=== PATIENT | female | born 1940 | race Caucasian/White ===

== ENCOUNTER 2016-08-29 10:22 | Inpatient (IN) | payer MEDICARE, OTHER ==
[2016-08-29 10:39] LABS: Hematocrit 49 % (35-47); Hemoglobin 16.1 g/dl (12.0-16.0); Mean Corpuscular HGB Conc 33 g/dl (31-36); Mean Corpuscular Hemoglobin 29 pg (27-31); Mean Corpuscular Volume 89 fL (80-97); Mean Platelet Volume 9 um3 (7.4-10.4); Red Blood Count 5.55 10^6/ul (4.0-5.4); Red Cell Distribution Width 15 % (10.5-15); White Blood Count 8.2 10^3/ul (3.5-10.8)
[2016-08-29] MEDS: Labetalol IV* 5 MG/ML 20 ML VIAL IV PUSH ONE ×2 (10:48→11:24)
--- NOTE | 2016-08-29 10:49 | RAD ---
Indication: Neurologic changes, coronal miranda. CT of the brain was performed without IV contrast. No prior study is available for comparison. Ventricular structures are midline. No midline shift is noted. There is central and cortical atrophy noted. There is no evidence of intracranial mass or hemorrhage. Periventricular lucency consistent with chronic ischemic White matter change is noted. Mastoid air cells and paranasal sinuses are otherwise unremarkable. IMPRESSION: No intracranial mass or hemorrhage is noted. Chronic ischemic White matter change. Findings discussed with Dr. French at 10:45 AM.
[2016-08-29 10:54] LABS: Albumin 4.2 g/dL (3.2-5.2); Calcium 9.8 mg/dL (8.6-10.3); EGFR African American 108.8 (>60); EGFR Non-African American 84.6 (>60); Globulin 3.4 g/dL (2-4); HDL Cholesterol 50.1 mg/dL; Potassium 3.3 mmol/L (3.5-5.0); Total Bilirubin 0.8 mg/dL (0.2-1.0); Total Protein 7.6 g/dL (6.4-8.9)
[2016-08-29 10:57] LABS: Troponin I 0.01 ng/mL (<0.04)
--- NOTE | 2016-08-29 11:24 | RAD ---
Indication: Syncope. Single frontal view of the chest performed at 1050 hours was reviewed. No prior study is available for review. No mediastinal shift is noted. This cardiomegaly noted. Lung hurtado appear clear with no pleural fluid, pneumonia or pneumothorax. IMPRESSION: NO ACTIVE CARDIOPULMONARY DISEASE IS NOTED.
[2016-08-29] MEDS ORDERED: ALTEPLASE IV ONE ×2 (11:32)
[2016-08-29] MEDS ORDERED: Alteplase* 100 MG VIAL ONE (11:32)
[2016-08-29] MEDS ORDERED: KCL 10 MEQ/50 ML IVPREMIX* 10 MEQ/50 ML BAG IV ONE (11:59)
[2016-08-29 12:22] LABS: Magnesium 1.6 mg/dL (1.9-2.7)
[2016-08-29] MEDS ORDERED: Iohexol 350* (CONTRAST) 500 ML MDV IV ONE (12:29)
[2016-08-29] MEDS ORDERED: Magnesium Sulfate 1 GM IV* 1 GM/100 ML BAG IV ONE (12:50)
--- NOTE | 2016-08-29 13:14 | RAD ---
Indication: Stroke. Contrast: Administered 80.1 ml of OMNIPAQUE 350 mg/ml. CTA of the neck and head was performed after IV contrast administration. Coronal and sagittal reconstructed images were obtained. The origins of the great vessels from the aortic arch are unremarkable with minimal atherosclerosis of the origin of the left common carotid artery. The internal carotid arteries are patent bilaterally. The right common carotid artery bulb demonstrates calcification. No evidence of aortic dissection or stenosis is identified otherwise. The left carotid bulb demonstrates calcific plaque. Tortuous left internal carotid artery is noted. The vertebral artery demonstrates demonstrates no evidence of significant stenosis. The intracranial carotid arteries demonstrate calcific plaque in the intracavernous portions. Normal bifurcations are noted with no aneurysmal dilatation. Middle cerebral and anterior cerebral arteries are grossly unremarkable. Basilar artery and posterior cerebral arteries are unremarkable. IMPRESSION: Calcific plaque is noted in both internal carotid arteries. Internal carotid arteries demonstrates no evidence of aortic dissection. CTA of the head demonstrates no branch occlusion. No aneurysmal dilatation is noted.
[2016-08-29] MEDS ORDERED: Magnesium Sulfate IV* 0.5 GM/ML 2 ML VIAL (1 GM) ONE (13:27)
[2016-08-29] MEDS ORDERED: Labetalol IV* 5 MG/ML 20 ML VIAL IV PUSH ONE (13:32)
[2016-08-29] MEDS ORDERED: Acetaminophen TAB* 325 MG PO PRN (14:20)
[2016-08-29] MEDS ORDERED: Ondansetron INJ* 2 MG/ML VIAL IV PRN (14:20)
[2016-08-29] MEDS ORDERED: Potassium Chloride LIQUID* 20 MEQ PACKET PO ONE (14:29)
[2016-08-29] MEDS: Atorvastatin* 80 MG TAB PO SCH (17:47)
--- NOTE | 2016-08-29 18:58 | ED ---
Sandie Batista Auryana, scribed for Jey French MD on 08/29/16 at 1034 . Neurological HPI - HPI Summary HPI Summary: 75 year old female presents to the ED with possible stroke. Patient is unsure if symptoms started at 08:00 AM or 09:00 AM but family reports that at about 08: 30, the patient called c/o symptoms - nausea, vomiting x1, diaphoresis, and fixed Gaze to the right. Per EMS report- patient had new onset atrial fibrillation en route. Code nadia called at 10:31. PMHx is significant for HTN and kidney cancer - in remission, no chemotherapy. - History of Current Complaint Chief Complaint: EDNeurologicalDeficit Stated Complaint: VOMITING/SWEATING Time Seen by Provider: 08/29/16 10:29 Last Known Well Date: 08/29/2016 08:00 Hx Obtained From: Patient Hx Last Menstrual Period: N/A Onset/Duration: Sudden Onset, Started hours ago - [employer]ATION[employer], Still Present Timing: Constant Onset Severity: Mild Current Severity: Mild Neurological Deficit Location: Generalized - fized gaze to the right Character: Visual Changes - fized gaze to the right Associated Signs and Symptoms: Positive: Nausea/Vomiting, Diaphoresis - Allergy/Home Medications Allergies/Adverse Reactions: Allergies Allergy/AdvReac Type Severity Reaction Status Date / Time No Known Allergies Allergy Verified 08/29/16 10:47 Home Medications: Home Medications Valsartan TAB* 08/29/16 [History] PMH/Surg Hx/FS Hx/Imm Hx Cardiovascular History: Reports: Hx Hypertension - Cancer History Cancer Type, Location and Year: [facility] - no chemotherapy tx - Family History Known Family History: Positive: Cardiac Disease - [place] IN HIUSBAND BUT OTHERWISE NO HISTORY, Hypertension, Other - CERVICAL CA, ETOH ABUSE Negative: Diabetes - Social History Lives: With Family Alcohol Use: None Hx Substance Use: No Substance Use Type: Reports: None Hx Tobacco Use: No Smoking Status (MU): Never Smoked Tobacco Review of Systems Positive: Skin Diaphoresis. Negative: Fever Eyes: Negative Positive: Other - fixed gaze to the right Respiratory: Negative Positive: Nausea Genitourinary: Negative Positive: no symptoms reported Musculoskeletal: Negative Skin: Negative Neurological: Negative Psychological: Normal All Other Systems Reviewed And Are Negative: Yes Physical Exam - Summary Physical Exam Summary: VITAL SIGNS: Reviewed. GENERAL: ~Patient is a obese female who is lying comfortable in the stretcher. ~ Patient is not in any acute respiratory distress. HEAD AND FACE: No signs of trauma. ~No ecchymosis, hematomas or skull depressions. No sinus tenderness. EYES: PERRLA, EOMI x 2, No injected conjunctiva, no nystagmus. No photophobia. EARS: Hearing grossly intact. Ear canals and tympanic membranes are within normal limits. MOUTH: Oropharynx within normal limits. NECK: Supple, trachea is midline, no adenopathy, no JVD, no carotid bruit, no c- spine tenderness, neck with full ROM. No meningeal signs, no Kernig's or brudzinskis signs. CHEST: Symmetric, no tenderness at palpation LUNGS: Clear to auscultation bilaterally. No wheezing or crackles. CVS: Regular rate and rhythm, S1 and S2 present, no murmurs or gallops appreciated. ABDOMEN: Soft, non-tender. No signs of distention. No rebound no guarding, and no masses palpated. Bowel sounds are normal. EXTREMITIES: FROM in all major joints, no cyanosis or clubbing. BILATERAL LOWER EXT EDEMA. NEURO: Alert and oriented x 3. Speech is normal and follows commands. SEE NIH SCALE - 2. SKIN: Dry and warm Triage Information Reviewed: Yes Vital Signs On Initial Exam: Initial Vitals Temp Pulse Resp BP Pulse Ox 95.9 F 89 18 194/128 94 08/29/16 10:28 08/29/16 10:28 08/29/16 10:28 08/29/16 10:28 08/29/16 10:28 Vital Signs Reviewed: Yes Diagnostics - Vital Signs Vital Signs Temp Pulse Resp BP Pulse Ox 08/29/16 13:30 65 13 155/96 96 08/29/16 13:06 68 14 171/106 94 08/29/16 13:05 66 14 182/104 95 08/29/16 13:00 67 14 95 08/29/16 12:59 64 16 171/106 94 08/29/16 12:00 63 15 95 08/29/16 11:55 61 15 152/95 96 08/29/16 11:50 61 15 165/101 97 08/29/16 11:49 59 16 95 08/29/16 11:48 60 15 155/100 96 08/29/16 11:30 65 18 153/86 94 08/29/16 11:27 68 18 156/95 96 08/29/16 11:20 67 14 177/105 96 08/29/16 11:00 58 15 161/107 96 08/29/16 10:56 171/89 08/29/16 10:51 171/89 08/29/16 10:50 69 16 96 08/29/16 10:49 192/121 08/29/16 10:43 81 20 92 08/29/16 10:40 192/121 08/29/16 10:28 95.9 F 89 18 194/128 94 - Laboratory Lab Results: Lab Results 08/29/16 08/29/16 08/29/16 Range/Units 10:30 10:30 10:30 WBC 8.2 (3.5-10.8) 10^3/ul RBC 5.55 H (4.0-5.4) 10^6/ul Hgb 16.1 H (12.0-16.0) g/dl Hct 49 H (35-47) % MCV 89 (80-97) fL MCH 29 (27-31) pg MCHC 33 (31-36) g/dl RDW 15 (10.5-15) % Plt Count 242 (150-450) 10^3/ul MPV 9 (7.4-10.4) um3 Neut % (Auto) 64.7 (38-83) % Lymph % (Auto) 25.9 (25-47) % Dickens % (Auto) 6.3 (1-9) % Eos % (Auto) 2.4 (0-6) % Baso % (Auto) 0.7 (0-2) % Absolute Neuts (auto) 5.3 (1.5-7.7) 10^3/ul Absolute Lymphs (auto) 2.1 (1.0-4.8) 10^3/ul Absolute Monos (auto) 0.5 (0-0.8) 10^3/ul Absolute Eos (auto) 0.2 (0-0.6) 10^3/ul Absolute Basos (auto) 0.1 (0-0.2) 10^3/ul Absolute Nucleated RBC 0 10^3/ul Nucleated RBC % 0 INR (Anticoag Therapy) 0.94 (0.89-1.11) APTT 24.9 L (26.0-36.3) seconds Sodium 137 (133-145) mmol/L Potassium 3.3 L (3.5-5.0) mmol/L Chloride 101 (101-111) mmol/L Carbon Dioxide 25 (22-32) mmol/L Anion Gap 11 (2-11) mmol/L BUN 17 (6-24) mg/dL Creatinine 0.68 (0.51-0.95) mg/dL Est GFR ( Amer) 108.8 (>60) Est GFR (Non-Af Amer) 84.6 (>60) BUN/Creatinine Ratio 25.0 H (8-20) Glucose 203 H (70-100) mg/dL Lactic Acid (0.5-2.0) mmol/L Calcium 9.8 (8.6-10.3) mg/dL Magnesium 1.6 L (1.9-2.7) mg/dL Total Bilirubin 0.80 (0.2-1.0) mg/dL AST 16 (13-39) U/L ALT 12 (7-52) U/L Alkaline Phosphatase 62 (34-104) U/L Troponin I 0.01 (<0.04) ng/mL Total Protein 7.6 (6.4-8.9) g/dL Albumin 4.2 (3.2-5.2) g/dL Globulin 3.4 (2-4) g/dL Albumin/Globulin Ratio 1.2 (1-3) Triglycerides 248 mg/dL Cholesterol 257 mg/dL LDL Cholesterol 157 mg/dL HDL Cholesterol 50.1 mg/dL Blood Type Antibody Screen 08/29/16 08/29/16 Range/Units 10:30 10:30 WBC (3.5-10.8) 10^3/ul RBC (4.0-5.4) 10^6/ul Hgb (12.0-16.0) g/dl Hct (35-47) % MCV (80-97) fL MCH (27-31) pg MCHC (31-36) g/dl RDW (10.5-15) % Plt Count (150-450) 10^3/ul MPV (7.4-10.4) um3 Neut % (Auto) (38-83) % Lymph % (Auto) (25-47) % Dickens % (Auto) (1-9) % Eos % (Auto) (0-6) % Baso % (Auto) (0-2) % Absolute Neuts (auto) (1.5-7.7) 10^3/ul Absolute Lymphs (auto) (1.0-4.8) 10^3/ul Absolute Monos (auto) (0-0.8) 10^3/ul Absolute Eos (auto) (0-0.6) 10^3/ul Absolute Basos (auto) (0-0.2) 10^3/ul Absolute Nucleated RBC 10^3/ul Nucleated RBC % INR (Anticoag Therapy) (0.89-1.11) APTT (26.0-36.3) seconds Sodium (133-145) mmol/L Potassium (3.5-5.0) mmol/L Chloride (101-111) mmol/L Carbon Dioxide (22-32) mmol/L Anion Gap (2-11) mmol/L BUN (6-24) mg/dL Creatinine (0.51-0.95) mg/dL Est GFR ( Amer) (>60) Est GFR (Non-Af Amer) (>60) BUN/Creatinine Ratio (8-20) Glucose (70-100) mg/dL Lactic Acid 2.5 H* (0.5-2.0) mmol/L Calcium (8.6-10.3) mg/dL Magnesium (1.9-2.7) mg/dL Total Bilirubin (0.2-1.0) mg/dL AST (13-39) U/L ALT (7-52) U/L Alkaline Phosphatase (34-104) U/L Troponin I (<0.04) ng/mL Total Protein (6.4-8.9) g/dL Albumin (3.2-5.2) g/dL Globulin (2-4) g/dL Albumin/Globulin Ratio (1-3) Triglycerides mg/dL Cholesterol mg/dL LDL Cholesterol mg/dL HDL Cholesterol mg/dL Blood Type O Positive Antibody Screen Negative Result Diagrams: 08/29/16 10:30 08/29/16 10:30 Lab Statement: Any lab studies that have been ordered have been reviewed, and results considered in the medical decision making process. - Radiology CXR Xray Interpretation: No Acute Changes Radiology Interpretation Completed By: Radiologist - CT BRAIN CT Interpretation: No Acute Changes - IMPRESSION: No intracranial mass or hemorrhage is noted. Chronic ischemic White matter change. Findings discussed with Dr. French at 10:[address] Interpretation Completed By: Radiologist HEAD CTA CT Interpretation: Positive (See Comments) - IMPRESSION: Calcific plaque is noted in both internal carotid arteries. Internal carotid arteries demonstrates no evidence of aortic dissection. CTA of the head demonstrates no branch occlusion. No aneurysmal dilatation is noted. CT Interpretation Completed By: Radiologist - EKG 10:41 EKG Interpretation: SINUS RHYTHM @ 82 BPM, P WAVES PRESENT NIH Scale - NIH Scale Level of Consciousness: Alert/Keenly Responsive Ask Patient the Month and His/Her Age: Both Correct Ask Pt to Open/Close Eyes and Equal Opportunity Specialist/Release Non-Paretic Hand: Both Correctly Best Gaze (Only Horizontal Eye Movement): Forced Deviation - gaze to the right Visual Field Testing: No Visual Loss Facial Paresis-Pt to Smile & Close Eyes or Grimace Symmetry: Normal/Symmetrical Motor Function - Right Arm: No Drift-Holds 10 Seconds Motor Function - Left Arm: No Drift-Holds 10 Seconds Motor Function - Right Leg: No Drift-Holds 10 Seconds Motor Function - Left Leg: No Drift-Holds 10 Seconds Limb Ataxia-Must be out of Proportion to Weakness Present: Absent Sensory (Use Pinprick to Test Arms/Legs/Trunk/Face): Normal Best Language (Describe Picture, Name Items): No Aphasia Dysarthria (Read Several Words): Normal Extinction and Inattention: No Abnormality Total Score: 2 Course/Dx - Course Assessment/Plan: 75 year old female presents to the ED with possible stroke. Patient is unsure if symptoms started at 08:00 AM or 09:00 AM but family reports that at about 08:30, the patient called c/o symptoms - nausea, vomiting x1, diaphoresis, and fixed Gaze to the right. Per EMS report- patient had new onset atrial fibrillation en route. Ta zuniga called at 10:31. PMHx is significant for HTN and kidney cancer - in remission, no chemotherapy. In the ED course an IV access was obtained. Patient was placed in a furniture polisher. Neuro exam was done. Ta miranda was called. Place call to [place] neurologist. BP was noted to be elevated. She was given Labetalol IV. Labs within normal limits except for increase HB and HCT. Potassium and magnesium level decreased. She was given KCL and Magnesium IV. Troponin #1: 0.01. EKG shows a NSR at [address] BPM w/[address] elevations. CXR impression: No acute pathology. Head CT shows no mass or hemorrhage . I discussed the case withDr. Nelson ([place] Neurologist ). He consulted via iPad with patient. After his assessment he decided to give Alteplase to the patient. She had no contraindications for Alteplase. Patient and family agreed. They understood benefits and risk of medications. Dr. Nelson also ordered head and neck CTA. CTA head and neck IMPRESSION: Calcific plaque is noted in both internal carotid arteries. Internal carotid arteries demonstrates no evidence of aortic dissection. CTA of the head demonstrates no branch occlusion. No aneurysmal dilatation is noted. I discussed the CTA result with Dr. Nelson (13:27) who recommends to admit patient to the ICU at [facility]. I discussed the case with Dr. Vargas (13:31) and recommends for hospitalist to admit patient to the ICU. I spoke with Dr. Perez and he accepted patient for admission. Patient is getting better and she can move eyes to the left. She hemodynamically stable and A+O x 3. - Differential Dx Differential Diagnoses Neuro: Positive: Cerebrovascular Accident, Seizure Disorder, Transient Ischemic Attack - Diagnoses Provider Diagnoses: Ischemic CVA, Hypertensive urgency During the Visit The Following Alert/Code Occurred: Code Zuniga - 10:31 - Physician Notifications Discussed Care Of Patient With: Denise Juarez Time Discussed With Above Provider: 11:00 - Critical Care Time Critical Care Time: 75-104 min Discharge - Discharge Plan Condition: Improved Disposition: ADMITTED TO [facility] documentation as recorded by the Sandie heredia Auryana accurately reflects the service I personally performed and the decisions made by me, Jey French MD.
--- NOTE | 2016-08-29 19:15 | HP ---
CC: Dr. Rodriguez; Dr. Juarez * HISTORY AND PHYSICAL: DATE OF ADMISSION: 08/29/16 PRIMARY CARE PROVIDER: Dr. Rodriguez. CONSULTING NEUROLOGIST: Dr. Juarez. ADMITTING PROVIDER: Fernando Galloway MD * (DICTATED BY LISA POLK NP) CHIEF COMPLAINT: 1. Left visual loss. 2. Falling to the right. 3. Not feeling well. HISTORY OF PRESENT ILLNESS: Mrs. Centeno is a 75-year-old female patient, the only history that she carries according to her is hypertension. She comes in today, she says that she was feeling well initially when she woke up around 7.30 and around 8'o clock, it was noted by herself that she was having trouble seeing on the left side, coming on suddenly, she noticed that she could not look over to the left. She felt clammy, she felt diaphoretic, nauseated, felt very dizzy. She stated that whenever she tried to walk, she noted that she was falling to the right. Her son, who used to work as a bus trolley and taxi instructor was concerned that this may be a stroke and he called 911, she was brought in. The son states that he did not notice any weakness to one side or any facial drooping or slurring of the words. The patient denied any of these complaints and denied having any trouble with word finding. She was last seen well around 8 'o clock, she was felt to be appropriate for TPA. Ta Porfirio was called. There was consult placed with Dr. Mancuso from [facility] and initially, she was consulted with Dr. Juarez. TPA was ultimately given and after further workup, it was felt that she was appropriate to be admitted as her CTA was negative. The patient says that she did not have any chest pain. No palpitations, no shortness of breath. There has been no abdominal pain. There was an episode of nausea, but no vomiting. She did admit to being diaphoretic. There has been no recent change in medications. No fevers or chills. Again, because of the stroke like symptoms, TPA was given and we are asked to evaluate for admission. PAST MEDICAL HISTORY: Significant for: 1. Hypertension. 2. She had kidney cancer. PAST SURGICAL HISTORY: She has had a kidney tumor removed. HOME MEDICATIONS: Valsartan 1 tablet p.o. daily, we are trying to get the actual milligrams. Family states they will bring in the medication bottle. ALLERGIES TO MEDICATIONS: Include no known drug allergies FAMILY HISTORY: Mother's history is reviewed, noncontributory. Father's history is unknown. SOCIAL HISTORY: She does not smoke. She does not drink alcohol. Surrogate decision maker is her son Zachary. REVIEW OF SYSTEMS: There is no documented fever. She denied having any significant weight change. There was no double vision. She did admit to having the visual loss on the left side. She denies having any ear discharge, no rhinorrhea, no sore throat, no thyroid enlargement. Denied any chest pain. No orthopnea or nocturnal dyspnea. There is no abdominal pain, no nausea, no vomiting, no dysuria, no frequency. There was no seizure, no loss of consciousness. No pruritus, no skin ulcerations. Review of 14 systems completed, all others negative. PHYSICAL EXAMINATION VITAL SIGNS: Reveals blood pressure 105/96, her pulse is 65, respirations 13, O2 sat 96%, temperature 95.9. GENERAL: At this time, Mrs. Centeno is a 75-year-old female patient. She is sitting in the ER stretcher. She does not appear to be in any acute distress. HEENT: Head is atraumatic and normocephalic. Eyes, EOMs are intact. Currently , she is now able to look to the left side and to the right, apparently earlier she could not. Her pupils are equal and reactive to light. Throat, oral mucosa appears to be moist. No oropharyngeal erythema. NECK: Supple. HEART: Sounds S1, S2. Regular rate and rhythm. No murmurs, rubs, or gallops. LUNGS: Clear to auscultation. No wheezes, rales, or rhonchi. ABDOMEN: Soft. It was flat. Nontender. Bowel sounds were present EXTREMITIES: Pulses were 2+ throughout. She is able to move all 4 extremities now with 5/5 strength. NEUROLOGIC: The patient is awake. She is alert. She is oriented x3. She does have right gaze preference still, but she is able to follow my finger and look to the left now, where as before she could not. Visual hurtado are intact to the left side now where as before they were not according to notes. Her coding educator were equal. Her tongue was midline. Her speech was clear. She had no pronator drift down. She had no limb ataxia. She could do [id number] bilaterally now as well. No other gross focal deficits were noted. SKIN: Intact. LABORATORY DATA/DIAGNOSTIC STUDIES: Labs today revealed a WBC of 8.2, RBC of 5.55, hemoglobin was 16.1, hematocrit of 49, platelet count of 242. INR 0.94. PTT of 24.9. Sodium was 137, potassium was 3.3, which was replaced in the ED. She had a BUN of 17, creatinine of 0.68, glucose 203, lactic 2.5, calcium 9.8. Mag 1.6, replaced in the ER. Total bili 0.8. AST 16, ALT 12, alk phos 52. Troponin 0.01. Albumin of 4.2. Her LDH was 157. Urine is pending. She had multiple imaging in the ER. She had a head CTA, which revealed calcified plaque noted in both internal carotid arteries. Internal carotid arteries demonstrate no evidence of dissection. CTA of the head demonstrates no branch occlusion. No aneurysmal dilatation is noted. Chest x-ray showed no active cardiopulmonary disease. She did have a brain CT, which showed no intracranial mass or hemorrhage noted. Chronic ischemic white matter change. She did have an EKG obtained today as well. Unfortunately, I do not have a previous for baseline comparison. It does show what appears to be a normal sinus rhythm with PACs. There was concern this may be AFib, I do not believe this is AFib. She does have extra T-waves in V1 leads, but the other leads especially in lead II, you can see T-waves with QRS complexes and PACs. So, at this point, I am going to call it sinus rhythm with a rate of 82. No ST elevation or T-wave inversions were noted. Old medical records were reviewed. ASSESSMENT AND PLAN: Mrs. Centeno is a 75-year-old female patient coming into the ER today with complaints of stroke-like symptoms. She did have a deviated gaze. She had visual loss on the left side and she was falling to the right. There was concern. Because of these findings, Ta Monroy was called. The patient was deemed appropriate for TPA and this was given. We are asked to evaluate for admission. She will be admitted under inpatient status for: 1. Cerebrovascular accident. At this point, Dr. Juarez has evaluated the the patient. She appears to be neurologically improving. We will get neuro checks frequently per TPA protocol. We will go ahead and place the patient NPO. If she passes dysphagia screening, I will put her on a clear liquid diet for the first 24 hours. We will get a CT of the head tomorrow afternoon about 24 hours after the TPA. Holding on aspirin and heparin products for DVT prophylaxis for now. We will get a PT and OT consult after the bedrest, activity is lifted because she did recently receive TPA. Speech evaluation has been ordered. I have ordered an MRI and an echo and again, CTA was negative. We will check lipids and A1c. I am going to start her on high dose aspirin as her LDL was 157. 2. Hypertension. For the time being, we will allow for permissive hypertension. Obviously if her systolics are greater than 185 or her diastolics greater than 110, I will give her something for p.r.n. medication as needed. Right now, she is 155/96. We will continue to monitor this. 3. History of kidney cancer. She will follow up with primary. 4. DVT prophylaxis. I am just going to order SCDs for the time being and then tomorrow we can consider adding on subcu heparin. 5. Fluid, electrolyte, nutrition. She is NPO pending a swallow evaluation. If she passes, I will put her on clears for tonight and then she can go on to a heart healthy diet tomorrow. 6. Code status. She wished to be a DNR. She has a MOLST form at home. We will try to obtain this. TIME SPENT: Time spent on the admission was approximately 60 minutes, greater than half the time spent [id number] with the patient obtaining my history and physical; the other half time was spent going over the plan of care with the patient and implementing plan of care. I did discuss the plan of care with my attending, Dr. Galloway. LISA POLK NP [id number]/[facility] #: [id number] [place]
[2016-08-30 05:48] LABS: Hematocrit 43 % (35-47); Hemoglobin 14.2 g/dl (12.0-16.0); Mean Corpuscular HGB Conc 33 g/dl (31-36); Mean Corpuscular Hemoglobin 29 pg (27-31); Mean Corpuscular Volume 90 fL (80-97); Mean Platelet Volume 9 um3 (7.4-10.4); Red Blood Count 4.82 10^6/ul (4.0-5.4); Red Cell Distribution Width 15 % (10.5-15); White Blood Count 8.3 10^3/ul (3.5-10.8)
[2016-08-30 07:33] LABS: Albumin 3.7 g/dL (3.2-5.2); BUN/Creatinine Ratio 22.2 (8-20); Calcium 9.2 mg/dL (8.6-10.3); EGFR African American 101.8 (>60); EGFR Non-African American 79.2 (>60); Globulin 2.7 g/dL (2-4); Total Bilirubin 0.8 mg/dL (0.2-1.0); Total Protein 6.4 g/dL (6.4-8.9)
--- NOTE | 2016-08-30 11:25 | PN ---
Subjective Date of Service: 08/30/16 Interval History: Patient reports her symptoms she presented with resolved. Denies vision changes , weakness, slurred speech. She feels that she is back to her baseline. Objective Active Medications: Acetaminophen (Tylenol Tab*) 650 mg PO Q4H PRN PRN Reason: FEVER/PAIN Atorvastatin Calcium (Lipitor*) 80 mg PO 1700 FLORA Last Admin: 08/29/16 17:47 Dose: 80 mg Ondansetron HCl (Zofran Inj*) 4 mg IV Q6H PRN PRN Reason: NAUSEA Vital Signs 08/30/16 08/30/16 08/30/16 06:00 06:30 07:00 Temperature Pulse Rate 74 70 66 Respiratory 15 16 14 Rate Blood Pressure 149/88 152/84 (mmHg) O2 Sat by Pulse 97 97 98 Oximetry 08/30/16 08/30/16 08/30/16 07:30 08:00 08:30 Temperature 97.9 F Pulse Rate 71 77 70 Respiratory 14 18 16 Rate Blood Pressure 151/96 (mmHg) O2 Sat by Pulse 96 98 97 Oximetry 08/30/16 08/30/16 08:48 09:00 Temperature Pulse Rate 68 Respiratory 16 Rate Blood Pressure (mmHg) O2 Sat by Pulse 94 96 Oximetry Oxygen Devices in Use Now: None Appearance: 75 yo female A+O x3 in NAD Eyes: No Scleral Icterus, PERRLA Ears/Nose/Mouth/Throat: NL Teeth, Lips, Gums, Mucous Membranes Moist Neck: NL Appearance and Movements; NL JVP Respiratory: Symmetrical Chest Expansion and Respiratory Effort, Clear to Auscultation Cardiovascular: NL Sounds; No Murmurs; No JVD, No Edema, - - irregularly irregular Abdominal: NL Sounds; No Tenderness; No Distention Lymphatic: No Cervical Adenopathy Extremities: No Edema, No Clubbing, Cyanosis Skin: No Rash or Ulcers, No Nodules or Sclerosis Neurological: Alert and Oriented x 3, NL Sensation, NL Gait, NL Muscle Strength and Tone Lines/Tubes/Other Access: Clean, Dry and Intact Peripheral IV Nutrition: Taking PO's Result Diagrams: 08/30/16 05:20 08/30/16 05:20 Additional Lab and Data: Lab Results 08/29/16 08/29/16 08/29/16 Range/Units 10:30 10:30 10:30 WBC 8.2 (3.5-10.8) 10^3/ul RBC 5.55 H (4.0-5.4) 10^6/ul Hgb 16.1 H (12.0-16.0) g/dl Hct 49 H (35-47) % MCV 89 (80-97) fL MCH 29 (27-31) pg MCHC 33 (31-36) g/dl RDW 15 (10.5-15) % Plt Count 242 (150-450) 10^3/ul MPV 9 (7.4-10.4) um3 Neut % (Auto) 64.7 (38-83) % Lymph % (Auto) 25.9 (25-47) % Horry % (Auto) 6.3 (1-9) % Eos % (Auto) 2.4 (0-6) % Baso % (Auto) 0.7 (0-2) % Absolute Neuts (auto) 5.3 (1.5-7.7) 10^3/ul Absolute Lymphs (auto) 2.1 (1.0-4.8) 10^3/ul Absolute Monos (auto) 0.5 (0-0.8) 10^3/ul Absolute Eos (auto) 0.2 (0-0.6) 10^3/ul Absolute Basos (auto) 0.1 (0-0.2) 10^3/ul Absolute Nucleated RBC 0 10^3/ul Nucleated RBC % 0 INR (Anticoag Therapy) 0.94 (0.89-1.11) APTT 24.9 L (26.0-36.3) seconds Sodium 137 (133-145) mmol/L Potassium 3.3 L (3.5-5.0) mmol/L Chloride 101 (101-111) mmol/L Carbon Dioxide 25 (22-32) mmol/L Anion Gap 11 (2-11) mmol/L BUN 17 (6-24) mg/dL Creatinine 0.68 (0.51-0.95) mg/dL Est GFR ( Amer) 108.8 (>60) Est GFR (Non-Af Amer) 84.6 (>60) BUN/Creatinine Ratio 25.0 H (8-20) Glucose 203 H (70-100) mg/dL Lactic Acid (0.5-2.0) mmol/L Calcium 9.8 (8.6-10.3) mg/dL Magnesium 1.6 L (1.9-2.7) mg/dL Total Bilirubin 0.80 (0.2-1.0) mg/dL AST 16 (13-39) U/L ALT 12 (7-52) U/L Alkaline Phosphatase 62 (34-104) U/L Troponin I 0.01 (<0.04) ng/mL Total Protein 7.6 (6.4-8.9) g/dL Albumin 4.2 (3.2-5.2) g/dL Globulin 3.4 (2-4) g/dL Albumin/Globulin Ratio 1.2 (1-3) Triglycerides 248 mg/dL Cholesterol 257 mg/dL LDL Cholesterol 157 mg/dL HDL Cholesterol 50.1 mg/dL Blood Type Antibody Screen 08/29/16 08/29/16 Range/Units 10:30 10:30 WBC (3.5-10.8) 10^3/ul RBC (4.0-5.4) 10^6/ul Hgb (12.0-16.0) g/dl Hct (35-47) % MCV (80-97) fL MCH (27-31) pg MCHC (31-36) g/dl RDW (10.5-15) % Plt Count (150-450) 10^3/ul MPV (7.4-10.4) um3 Neut % (Auto) (38-83) % Lymph % (Auto) (25-47) % Horry % (Auto) (1-9) % Eos % (Auto) (0-6) % Baso % (Auto) (0-2) % Absolute Neuts (auto) (1.5-7.7) 10^3/ul Absolute Lymphs (auto) (1.0-4.8) 10^3/ul Absolute Monos (auto) (0-0.8) 10^3/ul Absolute Eos (auto) (0-0.6) 10^3/ul Absolute Basos (auto) (0-0.2) 10^3/ul Absolute Nucleated RBC 10^3/ul Nucleated RBC % INR (Anticoag Therapy) (0.89-1.11) APTT (26.0-36.3) seconds Sodium (133-145) mmol/L Potassium (3.5-5.0) mmol/L Chloride (101-111) mmol/L Carbon Dioxide (22-32) mmol/L Anion Gap (2-11) mmol/L BUN (6-24) mg/dL Creatinine (0.51-0.95) mg/dL Est GFR ( Amer) (>60) Est GFR (Non-Af Amer) (>60) BUN/Creatinine Ratio (8-20) Glucose (70-100) mg/dL Lactic Acid 2.5 H* (0.5-2.0) mmol/L Calcium (8.6-10.3) mg/dL Magnesium (1.9-2.7) mg/dL Total Bilirubin (0.2-1.0) mg/dL AST (13-39) U/L ALT (7-52) U/L Alkaline Phosphatase (34-104) U/L Troponin I (<0.04) ng/mL Total Protein (6.4-8.9) g/dL Albumin (3.2-5.2) g/dL Globulin (2-4) g/dL Albumin/Globulin Ratio (1-3) Triglycerides mg/dL Cholesterol mg/dL LDL Cholesterol mg/dL HDL Cholesterol mg/dL Blood Type O Positive Antibody Screen Negative Microbiology and Other Data: Microbiology 08/29/16 15:08 Nasal Screen MRSA (PCR)([facility]) - Final Nasal Mrsa Negative Assess/Plan/Problems-Billing Assessment: 75 yo female with a PMH of HTN and kidney ca who presented 08/29 with c/o left visual loss, falling to the right and not feeling well who was given tPa for CVA with resolving symptoms, found to be in afib (new dx) - Patient Problems (1) CVA (cerebral vascular accident) Comment: s/p tpa - no signs of bleeding; patient presenting symptoms resolved and has no deficits. Noted to be in Afib (new dx) - No PFO noted on TTE; dicussed with Dr. Juarez plan to start ASA 325 mg daily starting now. - CT brain negative x2; Heat/Neck CTA normal; awaiting MRI - Continue Statin (2) Afib Comment: - new dx. Rate controlled with HR 80's. Hold off on BB at this time in the setting of new stroke and allowing for permissive htn. - ASA 325 mg daily only for now; most likely will need to be started on anti- coagulation once cleared by Neuro (3) HTN (hypertension) Comment: - hold valsartan (4) DVT prophylaxis Comment: SCDs (5) Patient is full code Status and Disposition: Inpatient with CVA. Home when medically stable
--- NOTE | 2016-08-30 12:22 | ECHO ---
Patient: FANNIE MIN [facility] Rec#: [id number] : 1940 Date: 08/30/2016 Age: 75y Height: 167.64 cm / 66.0 in Weight: 90.72 kg / 199.9 lbs Sex: F BSA: 2 Room#: ICU-5 Admit Date#: 08/29/2016 Type: Inpatient Referring: Shankar Hagan NP Reading: Sosa Fontaine MD Hydraulic Operator: Juana Ren IAN CC: Almas Rodriguez MD CC: Denise Juarez Transthoracic Echocardiogram Indication: CVA BP: 149/88 HR: 79 Rhythm: NSR with PACs Findings History: CVA with TPA rx.,HTN,prior kidney cancer, Technical Comments: The study quality is good. Left Ventricle: The left ventricular chamber size is normal. Moderate concentric left ventricular hypertrophy is observed. Global left ventricular wall motion and contractility are within normal limits. There is normal left ventricular systolic function. The estimated ejection fraction is 55-60%. There is no consistent Doppler evidence of clinically significant diastolic dysfunction. Left Atrium: The left atrium is severely dilated. Right Ventricle: The right ventricular cavity size is normal. The right ventricular global systolic function is normal. Right Atrium: The right atrium is moderate to severely dilated. There is no patent foramen ovale visualized. A patent foramen ovale is not demonstrated with color Doppler and agitated contrast. Aortic Valve: The aortic valve is trileaflet.Calcification of the aortic valve leaflets. There is no evidence of aortic regurgitation. There is no evidence of aortic stenosis. Mitral Valve: There is mitral annular calcification. The mitral valve leaflets are moderately thickened. There is moderate mitral regurgitation. There is borderline mitral stenosis. Tricuspid Valve: The tricuspid valve leaflets are normal. There is moderate tricuspid regurgitation. There is evidence of moderate pulmonary hypertension. There is no tricuspid stenosis. Pulmonic Valve: The pulmonic valve appears normal. There is no evidence of pulmonic regurgitation. There is no pulmonic stenosis. Pericardium: A pericardial fat pad is visualized. Aorta: There is no dilatation of the ascending aorta. There is no dilatation of the aortic arch. There is no dilation of the aortic root. Pulmonary Artery: The main pulmonary artery appears normal. Venous: The inferior vena cava is dilated. There is an approximate 50% respiratory change in the inferior vena cava dimension. Contrast: Normal saline was used as contrast for the bubble study. Intravenous contrast was used to help determine presence of intracardiac shunting. Summary: There was not any prior study for comparison. Conclusions The left ventricular chamber size is normal. Moderate concentric left ventricular hypertrophy is observed. The estimated ejection fraction is 55-60%. The left atrium is severely dilated. The right atrium is moderate to severely dilated. There is moderate mitral regurgitation. There is mitral annular calcification. There is borderline mitral stenosis. There is moderate tricuspid regurgitation. There is evidence of moderate pulmonary hypertension. There was not any prior study for comparison. Measurements Name Value Normal Range RVIDd (AP) 2D 3.4 cm (0.9 - 2.6) RVDdMajor (2D) 4.1 cm (2.2 - 4.4) RAd ISD 4CH 6 cm (3.4 - 4.9) RA (A4C)W 4.7 cm (2.9 - 4.6) IVSd (2D) 1.6 cm (0.6 - 1) LVPWd (2D) 1.2 cm (0.6 - 1) LVIDd (2D) 5.2 cm (3.6 - 5.4) LVIDs (2D) 3.5 cm - LV FS (2D) 32 % (25 - 45) Aortic Annulus 1.7 cm (1.4 - 2.6) Ao root diameter (2D) 3.1 cm (2.1 - 3.5) Ascending Ao 3.2 cm (2.1 - 3.4) Aortic arch 2.5 cm (1.8 - 3.4) Descending Ao 0.4 cm - LA dimension (AP) 2D 6 cm (2.3 - 3.8) LAd ISD 4CH 8.3 cm (2.9 - 5.3) LA ISD 4CH W 6.1 cm (2.5 - 4.5) Name Value Normal Range LA ESV SP 4CH (A/L) 215 ml - LA ESV SP 2CH (A/L) 192 ml - LA ESV BP (A/L) 215 ml - LA ESV BP (A/L) index 107.68 ml/m2 - LA ESV SP 4CH (MOD) 207 ml - LA ESV SP 2CH (MOD) 182 ml - Name Value Normal Range MV E-wave Vmax 1.6 m/sec - MV deceleration time 220 msec - MV A-wave Vmax 0.4 m/sec - MV E:A ratio 3.72 ratio - LV septal e' Vmax 0.06 m/sec - LV lateral e' Vmax 0.16 m/sec - LV E:e' septal ratio 26.67 ratio - LV E:e' lateral ratio 10 ratio - Name Value Normal Range AV Vmax 1.7 m/sec - AV VTI 35.4 cm - AV peak gradient 11.85 mmHg - AV mean gradient 5.85 mmHg - LVOT diameter 1.9 cm - LVOT Vmax 1 m/sec - LVOT VTI 19.06 cm - LVOT peak gradient 3.92 mmHg - LVOT mean gradient 1.79 mmHg - Name Value Normal Range MV Vmax 1.6 m/sec - MV VTI 34.8 cm - MV peak gradient 8.92 mmHg - MV mean gradient 2.81 mmHg - MV PHT 64 msec - MVA (PHT) 3.7 cm2 - MVA (continuity VTI) 1.7 cm2 - Name Value Normal Range TR Vmax 3.3 m/sec - TR peak gradient 43 mmHg - RAP 8 mmHg - RVSP 51 mmHg - IVC diameter 2.6 cm - Name Value Normal Range PV Vmax 1.1 m/sec - PV peak gradient 4.8 mmHg -
--- NOTE | 2016-08-30 12:38 | RAD ---
Indication: Stroke status post TPA. CT of the brain was performed without IV contrast. Comparison is made with previous exam dated August 29, 2016. Ventricular structures are midline. No midline shift is noted. The extra-axial spaces are unremarkable. There is no evidence of intracranial mass or hemorrhage. No other high or low density lesions are identified. IMPRESSION: No intracranial hemorrhage is noted. Chronic ischemic White matter change.
[2016-08-30] MEDS ORDERED: Aspirin EC TAB* 325 MG PO ONE (16:00)
[2016-08-30 16:01] LABS: Magnesium 1.9 mg/dL (1.9-2.7)
[2016-08-30] MEDS: Atorvastatin* 80 MG TAB PO SCH (16:19)
--- NOTE | 2016-08-31 02:41 | PN ---
NEUROLOGY PROGRESS NOTE: DATE OF FOLLOWUP: 08/30/16 The patient is in the ICU. OVERNIGHT EVENTS: No acute overnight events. I was present yesterday in the emergency department when Mrs. Centeno was evaluated through a telestroke service and observed her fixed right gaze deviation, which was not overcome with the oculocephalic maneuver as well as a homonymous left hemianopsia. Her speech was clear and she had no extremity weakness. Her sensorium was clear. She had experienced nausea and vomiting as well as diaphoresis prior to her presentation to the emergency department, but was feeling better with respect to those symptoms at the time of evaluation. She was treated with TPA and I went down to see her again in the emergency department at approximately 1 or 1: 30 p.m., and she was doing much better in terms of no longer having a fixed gaze deviation and having improvement in her peripheral vision as well. This morning she continues to feel much better and states that she feels tiara. She denies any history of diabetes or atrial fibrillation. She was not taking any antiplatelet agent prior to admission. She has been requiring oxygen since she has been admitted. She has not yet undergone her repeat head CT, but is heading down for that at this time. MEDICATIONS: Include: 1. Tylenol as needed, 2. Lipitor 80 mg daily, which was started last night. 3. Zofran as needed for nausea. She will be started on aspirin later today. PHYSICAL EXAMINATION: Vital Signs: Temperature 97.9, blood pressure 151/96, heart rate 71, oxygen saturation is 96% on 2 L. On general examination, she is in no acute distress. Heart is in regular rate and rhythm with no obvious murmurs. There are no carotid bruits. Her lungs are clear to auscultation anteriorly. On neurologic exam, she is fully awake, alert, and oriented. Speech is clear without dysarthria or aphasia. On cranial nerve testing, pupils are equal, round and reactive from 3-2 mm bilaterally. Her versions are full without nystagmus. Her gaze is midline on primary gaze. Her hurtado are full to confrontation with no extinction to double simultaneous stimulation. Facial sensation and musculature is full and symmetric. Hearing is intact to voice. The palate elevates symmetrically and the tongue is midline. On motor examination, there is normal strength in the upper extremities with no pronator drift. The remainder of the neurologic exam was deferred at this time secondary to the patient being ready for repeat CT scan and the fact that there were no deficits noted in the remainder of the neurologic exam yesterday. DIAGNOSTIC STUDIES/LABORATORY DATA: CBC yesterday showed a hematocrit of 49, which is 43 today. Her chemistry panel showed a glucose of 203 on admission and this morning was 109 at 5:20 a.m. Her hemoglobin A1c is 6.4%. Her lactate was 2.5 at 10:30 a.m. yesterday and 2.3 at 1655 yesterday. Magnesium was slightly low at 1.6 yesterday. Cholesterol studies showed triglycerides 231, total cholesterol 232, LDL 140 and HDL of 46. Her PTT was slightly low at 24.9 yesterday. INR was normal yesterday and today it came back at 1.21. Non-contrast brain CT was obtained and personally reviewed yesterday prior to TPA and showed some chronic microvascular changes, but no hemorrhage and no obvious areas of acute stroke. CT angiogram of the head and neck was obtained after TPA yesterday and showed no obvious areas of focal stenosis or occlusion. IMPRESSION: Torie Centeno is a 75-year-old woman with a history of hypertension and now shown to have hyperlipidemia and probable impaired fasting glucose versus mild diabetes who presented with a fixed gaze deviation to the right and a left homonymous hemianopsia without any other neurologic signs or symptoms ( though she was nauseated and vomiting prior to presentation). The constellation of symptoms was concerning for a right hemispheric process; however, the fixed gaze deviation is unusual in the setting of stroke without other signs of a large right MCA stroke such as hemiparesis on the left and neglect as well. The differential would also include a seizure, which would presumably be emanating from the left hemisphere in order to cause forced right gaze deviation, but this would not explain her left homonymous hemianopsia. Most likely this was a stroke, possibly embolic in nature given that more than one brain region is invoked in localizing her symptoms. She will start aspirin later today, more than 24 hours after she received TPA. She has been started on statin and was informed that her hemoglobin A1c was elevated. She will undergo head CT at this time to follow up on 24 hours post TPA. She will also undergo MRI scan of the brain tomorrow. She has had her echocardiogram done, but the results are pending. As long as there are no surprises on the CT scan, she can go to the floor later today with continued monitoring on telemetry. She should undergo therapy evaluations, but I anticipate that she will not need any interventions. [id number]/[facility] #: [id number] MTDD
[2016-08-31 05:43] LABS: BUN/Creatinine Ratio 26.9 (8-20); Calcium 8.9 mg/dL (8.6-10.3); EGFR African American 110.7 (>60); Magnesium 1.9 mg/dL (1.9-2.7); Potassium 3.7 mmol/L (3.5-5.0)
[2016-08-31 05:49] LABS: Urine Bacteria Absent (Absent); Urine Bilirubin Negative (Negative); Urine Glucose Negative (Negative); Urine Nitrite Negative (Negative)
[2016-08-31] MEDS: Aspirin EC TAB* 325 MG PO SCH (07:48)
--- NOTE | 2016-08-31 12:26 | RAD ---
Indication: CVA. Post TPA. Comparison: August 30, 2016 CT. Technique: [employer] [place] 1.5 Annabella [id number] with GEM suite. MRI brain without contrast. Report: Tiny focus of restricted diffusion at the RIGHT parietal lobe posteriorly at the level of the kimball radiata with corresponding decreased signal on ADC map consistent with a small focus of ischemia. No additional acute or subacute ischemic foci evident. A few punctate foci of hemosiderin deposition are noted including at the benton and bilateral cerebral hemispheres consistent with remote punctate intra-axial hemorrhages likely due to small cavernous angiomas. Mild prominence of the cerebral sulci secondary to atrophy. Unremarkable ventricles and basal cisterns. Increased T2 signal in the periventricular and subcortical white matter regions of the cerebral hemispheres without mass effect while not entirely specific is most suggestive of chronic small vessel ischemic disease. No intra or extra-axial fluid collections evident. Preserved major intracranial flow-voids. Unremarkable orbital contents. No suspicious calvarial or skull base lesions evident. Small effusion at the inferior RIGHT mastoid air space. Clear paranasal sinuses. IMPRESSION: 1. Small acute or subacute ischemic focus at the RIGHT parietal lobe. Negative for mass effect. 2. Atrophy and stigmata of probable chronic small vessel ischemic disease. 3. A few punctate foci of hemosiderin deposition are noted including at the benton and bilateral cerebral hemispheres consistent with remote punctate intra-axial hemorrhages likely due to small cavernous angiomas.
--- NOTE | 2016-08-31 17:08 | PN ---
Subjective Date of Service: 08/31/16 Interval History: Patient seen and examined at bedside. Pt states that her vision is at it baseline. Denies fever, chills, headache, lightheadedness, shortness of breath, weakness, chest discomfort, palpitations, N/V/D. Tele: Afib, rate 70-90's. Pt was noted to have HR up to 120's when she ambulated to the bathroom. Family History: Unchanged from Admission Social History: Unchanged from Admission Past Medical History: Unchanged from Admission Objective Active Medications: Acetaminophen (Tylenol Tab*) 650 mg PO Q4H PRN Reason: FEVER/PAIN Aspirin (Ecotrin Ec Tab*) 325 mg PO DAILY FLORA Atorvastatin Calcium (Lipitor*) 80 mg PO 1700 FLORA Ondansetron HCl (Zofran Inj*) 4 mg IV Q6H PRN Reason: NAUSEA Vital Signs 08/30/16 08/30/16 08/30/16 17:07 17:30 17:35 Temperature Pulse Rate 71 79 74 Respiratory 17 17 16 Rate Blood Pressure 171/105 144/95 (mmHg) O2 Sat by Pulse 93 93 92 Oximetry 08/30/16 08/30/16 08/30/16 18:00 18:30 18:31 Temperature Pulse Rate 49 92 85 Respiratory 20 21 23 Rate Blood Pressure 166/109 160/103 (mmHg) O2 Sat by Pulse 89 90 90 Oximetry 08/30/16 08/30/16 08/30/16 19:00 19:30 20:00 Temperature 99.5 F Pulse Rate 83 84 76 Respiratory 19 20 26 Rate Blood Pressure 158/94 132/86 (mmHg) O2 Sat by Pulse 90 93 91 Oximetry 08/30/16 08/30/16 08/30/16 20:30 21:00 21:30 Temperature Pulse Rate 86 76 77 Respiratory 21 15 15 Rate Blood Pressure 143/80 (mmHg) O2 Sat by Pulse 92 92 90 Oximetry 08/30/16 08/30/16 08/30/16 22:00 22:30 23:00 Temperature Pulse Rate 81 77 86 Respiratory 13 14 15 Rate Blood Pressure 151/100 147/88 (mmHg) O2 Sat by Pulse 97 97 98 Oximetry 08/30/16 08/30/16 08/30/16 23:17 23:27 23:30 Temperature 98.1 F Pulse Rate 81 74 Respiratory 15 14 Rate Blood Pressure (mmHg) O2 Sat by Pulse 97 97 Oximetry 08/31/16 08/31/16 08/31/16 00:00 00:01 00:30 Temperature Pulse Rate 78 75 81 Respiratory 24 21 19 Rate Blood Pressure 129/66 (mmHg) O2 Sat by Pulse 98 97 95 Oximetry 08/31/16 08/31/16 08/31/16 01:00 01:30 02:00 Temperature Pulse Rate 84 76 85 Respiratory 20 17 14 Rate Blood Pressure 136/81 141/81 (mmHg) O2 Sat by Pulse 97 96 97 Oximetry 08/31/16 08/31/16 08/31/16 02:30 03:00 03:30 Temperature Pulse Rate 83 73 74 Respiratory 15 15 14 Rate Blood Pressure 147/82 (mmHg) O2 Sat by Pulse 92 95 97 Oximetry 08/31/16 08/31/16 08/31/16 03:59 04:00 04:30 Temperature 98.2 F Pulse Rate 82 81 Respiratory 15 15 Rate Blood Pressure 151/87 (mmHg) O2 Sat by Pulse 96 95 Oximetry 08/31/16 08/31/16 08/31/16 05:00 05:30 06:00 Temperature Pulse Rate 79 71 71 Respiratory 15 14 14 Rate Blood Pressure 153/100 144/88 (mmHg) O2 Sat by Pulse 97 97 99 Oximetry 08/31/16 08/31/16 08/31/16 06:30 07:00 07:30 Temperature Pulse Rate 77 73 74 Respiratory 16 16 17 Rate Blood Pressure 151/88 (mmHg) O2 Sat by Pulse 98 97 96 Oximetry 08/31/16 08/31/16 08/31/16 07:52 07:54 07:59 Temperature 98.3 F Pulse Rate Respiratory 16 Rate Blood Pressure (mmHg) O2 Sat by Pulse 96 Oximetry 08/31/16 08/31/16 08/31/16 08:00 08:30 09:00 Temperature Pulse Rate 73 73 Respiratory 15 17 18 Rate Blood Pressure 158/76 150/84 (mmHg) O2 Sat by Pulse 97 95 Oximetry 08/31/16 08/31/16 08/31/16 09:32 10:00 10:30 Temperature Pulse Rate 74 79 Respiratory 18 18 19 Rate Blood Pressure 154/80 (mmHg) O2 Sat by Pulse 95 96 Oximetry 08/31/16 08/31/16 08/31/16 11:00 12:00 12:21 Temperature 98 F Pulse Rate 79 Respiratory 15 12 Rate Blood Pressure 141/80 (mmHg) O2 Sat by Pulse 96 Oximetry 08/31/16 08/31/16 08/31/16 12:30 13:00 13:30 Temperature Pulse Rate 83 96 83 Respiratory 16 22 21 Rate Blood Pressure 170/109 (mmHg) O2 Sat by Pulse 97 97 96 Oximetry 08/31/16 08/31/16 08/31/16 14:00 14:30 14:51 Temperature 98.4 F Pulse Rate 78 165 86 Respiratory 19 21 20 Rate Blood Pressure 136/83 171/88 (mmHg) O2 Sat by Pulse 96 96 100 Oximetry Oxygen Devices in Use Now: None Appearance: NAD, sitting up on the side of the bed Ears/Nose/Mouth/Throat: Mucous Membranes Moist Respiratory: Symmetrical Chest Expansion and Respiratory Effort, Clear to Auscultation Cardiovascular: NL Sounds; No Murmurs; No JVD, - - Heart rate irregular Abdominal: NL Sounds; No Tenderness; No Distention Extremities: - - 1+ bilateral LE edema Skin: No Rash or Ulcers Neurological: Alert and Oriented x 3, NL Muscle Strength and Tone Lines/Tubes/Other Access: Clean, Dry and Intact Peripheral IV - site benign Nutrition: Taking PO's Result Diagrams: 08/30/16 05:20 08/31/16 05:10 Microbiology and Other Data: Microbiology 08/29/16 15:08 Nasal Screen MRSA (PCR)([place]) - Final Nasal Mrsa Negative Assess/Plan/Problems-Billing Assessment: Ms. Centeno is a 75 yo female with a PMH of HTN and kidney ca who presented 08/29 with c/o left visual loss, falling to the right and not feeling well who was given tPa for CVA with resolving symptoms, found to be in afib (new dx) - Patient Problems (1) CVA (cerebral vascular accident) Code(s): I63.9 - CEREBRAL INFARCTION, UNSPECIFIED SNOMED Code(s): 019537598 Comment: - s/p tpa - no signs of bleeding; patient presenting symptoms resolved and has no deficits. - Noted to be in Afib (new dx) - No PFO noted on TTE. - CT brain negative x2; Head/Neck CTA normal - MRI - small acute or subacute ischemic focus at the right parietal lobe. - Neurology following patient - No OT needs - PT eval pending - Continue statin and ASA 325 mg (2) Afib Code(s): I48.91 - UNSPECIFIED ATRIAL FIBRILLATION SNOMED Code(s): 87690351 Comment: - New dx. Rate controlled with HR 70-90's. - Hold off on BB at this time in the setting of new stroke and allowing for permissive htn. - [id number] score 5 points. - ASA 325 mg daily only for now; most likely will need to be started on anti- coagulation once cleared by Neuro (3) HTN (hypertension) Code(s): I10 - ESSENTIAL (PRIMARY) HYPERTENSION SNOMED Code(s): 34162482 Comment: - Hypertensive at times - Hold valsartan (4) DVT prophylaxis Code(s): UAG4903 - SNOMED Code(s): 922154146 Comment: - SCDs (5) DNR (do not resuscitate) Comment: - Pt has a completed MOLST at home and will have someone bring it in from home. Status and Disposition: Inpatient with CVA. Home when medically stable.
[2016-08-31] MEDS: Atorvastatin* 80 MG TAB PO SCH (17:38)
--- NOTE | 2016-09-01 01:33 | PN ---
PROGRESS NOTE: DATE OF FOLLOWUP: 08/31/16 OVERNIGHT EVENTS: No acute overnight events. Ms. Centeno continues to feel well. She continues on supplemental oxygen, though she denies feeling short of breath when oxygen is removed. She has been noted to desaturate into the 80s and oxygen is then placed back on by nasal cannula. She is a little unsteady on her feet but attributes that to arthritis in her foot. She denies any known prior history of stroke, but mentions that about 2 years ago, she had a period of confusion and forgetfulness, which was attributed to possibly a systemic inflammatory process that was ongoing in the setting of an ulcer on one of her legs, though she denies being septic at that time. She has undergone echocardiogram as well as MRI scan of the brain and repeat CT yesterday was without hemorrhage. MEDICATIONS: Include: 1. Aspirin 325 mg. 2. Lipitor 80 mg. 3. Tylenol as needed. PHYSICAL EXAMINATION: Vital Signs: Temperature 98 degrees, blood pressure 141/ 80, heart rate 79, oxygen saturation 96% on room air. Review of telemetry shows that the patient went into atrial fibrillation yesterday, but is well rate controlled at this point without medication. On general examination, she is in no acute distress. Her heart is in an irregular rhythm. Lungs are clear to auscultation bilaterally. On neurologic examination, she is fully awake, alert and oriented. Speech is fluent without dysarthria or aphasia. Pupils are equal, round and reactive from 4 to 2 mm bilaterally. Gaze is midline. Versions are full without nystagmus. Araiza are full to confrontation with no extinction to double simultaneous stimulation. Facial sensation and musculature is full and symmetric. Hearing is intact to finger rub. On motor examination, she has normal strength in the upper and lower extremities with no pronator drift. Sensation is intact to light touch in the upper and lower extremities. On [id number] testing, there is no ataxia. DATA: Urinalysis collected this morning was notable for matthew color of urine, with a turbid appearance with 1+ protein, 2+ leukocyte esterase, 3+ wbc's, 2+ rbc's with the presence of squamous epithelial cells as well as transitional epithelial cells and no bacteria. Transthoracic echocardiogram shows moderate concentric LVH with an EF of 55% to 60%. The left atrium is severely dilated and the right atrium is moderate to severely dilated. There is no evidence of a shunt by bubble study. MRI of the brain was personally reviewed and shows a tiny focus of restricted diffusion in the right parietal lobe as well as possibly at the periphery of the benton on the right, but this could be artifactual. The FLAIR sequence shows significant small vessel disease in both the brain stem as well as in the cerebral hemispheres bilaterally. In addition, there are several punctate foci of hemosiderin deposition in the benton as well as in the bilateral cerebral hemispheres. In addition, it appears that there is a small old infarct in the right frontal lobe. IMPRESSION: Torie Centeno is a 75-year-old woman with a history of hypertension and now atrial fibrillation, who received TPA on 08/29/16 for a forced gaze deviation to the right and a left homonymous hemianopsia. She has recovered completely from these neurologic deficits and does have evidence of tiny areas of stroke on her MRI scan. She also has evidence of cerebral microbleeds, which could be due to small hypertensive hemorrhages versus cerebral amyloid angiopathy and probably less likely cavernous malformations. The presence of these lesions could confer an increased risk of intracerebral hemorrhage, especially in the setting of antithrombotics or anticoagulants; however, the presence of the atrial fibrillation would argue for a treatment with an anticoagulant for secondary stroke prevention going forward. I discussed these issues with her today and will try to track down some more specific numbers if possible such as the annual risk of lobar hemorrhage in the presence of known cerebral amyloid angiopathy, if those data are available. At this point, I think it is likely that anticoagulation will be recommended for secondary stroke prevention, but for today she can remain on aspirin. I think at this point, her home antihypertensive can be restarted and start aiming towards normotension, given the tiny area of infarction that was seen. [id number]/[facility] #: [id number] [facility]PITALTommy
[2016-09-01] MEDS ORDERED: hydrALAZINE IV* 20 MG/ML VIAL IV PRN (04:17)
[2016-09-01] MEDS: Aspirin EC TAB* 325 MG PO SCH (09:21)
--- NOTE | 2016-09-01 10:39 | PN ---
Subjective Date of Service: 09/01/16 Interval History: Ms. Centeno states that she is feeling quite well today and is eager for discharge to home. Family History: Unchanged from Admission Social History: Unchanged from Admission Past Medical History: Unchanged from Admission Objective Active Medications: Acetaminophen (Tylenol Tab*) 650 mg PO Q4H PRN Aspirin (Ecotrin Ec Tab*) 325 mg PO DAILY FLORA Atorvastatin Calcium (Lipitor*) 80 mg PO 1700 FLORA Hydralazine HCl (Apresoline Iv*) 10 mg IV Q4H PRN Ondansetron HCl (Zofran Inj*) 4 mg IV Q6H PRN Vital Signs 08/31/16 08/31/16 08/31/16 11:00 12:00 12:21 Temperature 98 F Pulse Rate 79 Respiratory 15 12 Rate Blood Pressure 141/80 (mmHg) O2 Sat by Pulse 96 Oximetry 08/31/16 08/31/16 08/31/16 12:30 13:00 13:30 Temperature Pulse Rate 83 96 83 Respiratory 16 22 21 Rate Blood Pressure 170/109 (mmHg) O2 Sat by Pulse 97 97 96 Oximetry 08/31/16 08/31/16 08/31/16 14:00 14:30 14:51 Temperature 98.4 F Pulse Rate 78 165 86 Respiratory 19 21 20 Rate Blood Pressure 136/83 171/88 (mmHg) O2 Sat by Pulse 96 96 100 Oximetry 08/31/16 08/31/16 08/31/16 19:56 20:15 23:36 Temperature 98.9 F 98.9 F Pulse Rate 79 103 Respiratory 17 17 16 Rate Blood Pressure 144/85 (mmHg) O2 Sat by Pulse 96 94 Oximetry 08/31/16 09/01/16 09/01/16 23:39 03:54 04:12 Temperature 98.7 F Pulse Rate 87 Respiratory 16 Rate Blood Pressure 160/90 189/81 190/80 (mmHg) O2 Sat by Pulse 93 Oximetry 09/01/16 09/01/16 06:07 08:56 Temperature 98.5 F 98.2 F Pulse Rate 88 89 Respiratory 20 14 Rate Blood Pressure 152/93 157/91 (mmHg) O2 Sat by Pulse 95 96 Oximetry Oxygen Devices in Use Now: None Appearance: Female sitting up in bed in NAD Eyes: No Scleral Icterus Ears/Nose/Mouth/Throat: Mucous Membranes Moist Neck: Trachea Midline Respiratory: Symmetrical Chest Expansion and Respiratory Effort, Clear to Auscultation Cardiovascular: NL Sounds; No Murmurs; No JVD, No Edema Abdominal: NL Sounds; No Tenderness; No Distention Lymphatic: No Cervical Adenopathy Extremities: No Edema Skin: No Rash or Ulcers Neurological: Alert and Oriented x 3, NL Muscle Strength and Tone Nutrition: Taking PO's Result Diagrams: 08/30/16 05:20 08/31/16 05:10 Additional Lab and Data: Lab Results 08/29/16 08/29/16 08/29/16 Range/Units 10:30 10:30 10:30 WBC 8.2 (3.5-10.8) 10^3/ul RBC 5.55 H (4.0-5.4) 10^6/ul Hgb 16.1 H (12.0-16.0) g/dl Hct 49 H (35-47) % MCV 89 (80-97) fL MCH 29 (27-31) pg MCHC 33 (31-36) g/dl RDW 15 (10.5-15) % Plt Count 242 (150-450) 10^3/ul MPV 9 (7.4-10.4) um3 Neut % (Auto) 64.7 (38-83) % Lymph % (Auto) 25.9 (25-47) % [place] % (Auto) 6.3 (1-9) % Eos % (Auto) 2.4 (0-6) % Baso % (Auto) 0.7 (0-2) % Absolute Neuts (auto) 5.3 (1.5-7.7) 10^3/ul Absolute Lymphs (auto) 2.1 (1.0-4.8) 10^3/ul Absolute Monos (auto) 0.5 (0-0.8) 10^3/ul Absolute Eos (auto) 0.2 (0-0.6) 10^3/ul Absolute Basos (auto) 0.1 (0-0.2) 10^3/ul Absolute Nucleated RBC 0 10^3/ul Nucleated RBC % 0 INR (Anticoag Therapy) 0.94 (0.89-1.11) APTT 24.9 L (26.0-36.3) seconds Sodium 137 (133-145) mmol/L Potassium 3.3 L (3.5-5.0) mmol/L Chloride 101 (101-111) mmol/L Carbon Dioxide 25 (22-32) mmol/L Anion Gap 11 (2-11) mmol/L BUN 17 (6-24) mg/dL Creatinine 0.68 (0.51-0.95) mg/dL Est GFR ( Amer) 108.8 (>60) Est GFR (Non-Af Amer) 84.6 (>60) BUN/Creatinine Ratio 25.0 H (8-20) Glucose 203 H (70-100) mg/dL Lactic Acid (0.5-2.0) mmol/L Calcium 9.8 (8.6-10.3) mg/dL Magnesium 1.6 L (1.9-2.7) mg/dL Total Bilirubin 0.80 (0.2-1.0) mg/dL AST 16 (13-39) U/L ALT 12 (7-52) U/L Alkaline Phosphatase 62 (34-104) U/L Troponin I 0.01 (<0.04) ng/mL Total Protein 7.6 (6.4-8.9) g/dL Albumin 4.2 (3.2-5.2) g/dL Globulin 3.4 (2-4) g/dL Albumin/Globulin Ratio 1.2 (1-3) Triglycerides 248 mg/dL Cholesterol 257 mg/dL LDL Cholesterol 157 mg/dL HDL Cholesterol 50.1 mg/dL Blood Type Antibody Screen 08/29/16 08/29/16 Range/Units 10:30 10:30 WBC (3.5-10.8) 10^3/ul RBC (4.0-5.4) 10^6/ul Hgb (12.0-16.0) g/dl Hct (35-47) % MCV (80-97) fL MCH (27-31) pg MCHC (31-36) g/dl RDW (10.5-15) % Plt Count (150-450) 10^3/ul MPV (7.4-10.4) um3 Neut % (Auto) (38-83) % Lymph % (Auto) (25-47) % [place] % (Auto) (1-9) % Eos % (Auto) (0-6) % Baso % (Auto) (0-2) % Absolute Neuts (auto) (1.5-7.7) 10^3/ul Absolute Lymphs (auto) (1.0-4.8) 10^3/ul Absolute Monos (auto) (0-0.8) 10^3/ul Absolute Eos (auto) (0-0.6) 10^3/ul Absolute Basos (auto) (0-0.2) 10^3/ul Absolute Nucleated RBC 10^3/ul Nucleated RBC % INR (Anticoag Therapy) (0.89-1.11) APTT (26.0-36.3) seconds Sodium (133-145) mmol/L Potassium (3.5-5.0) mmol/L Chloride (101-111) mmol/L Carbon Dioxide (22-32) mmol/L Anion Gap (2-11) mmol/L BUN (6-24) mg/dL Creatinine (0.51-0.95) mg/dL Est GFR ( Amer) (>60) Est GFR (Non-Af Amer) (>60) BUN/Creatinine Ratio (8-20) Glucose (70-100) mg/dL Lactic Acid 2.5 H* (0.5-2.0) mmol/L Calcium (8.6-10.3) mg/dL Magnesium (1.9-2.7) mg/dL Total Bilirubin (0.2-1.0) mg/dL AST (13-39) U/L ALT (7-52) U/L Alkaline Phosphatase (34-104) U/L Troponin I (<0.04) ng/mL Total Protein (6.4-8.9) g/dL Albumin (3.2-5.2) g/dL Globulin (2-4) g/dL Albumin/Globulin Ratio (1-3) Triglycerides mg/dL Cholesterol mg/dL LDL Cholesterol mg/dL HDL Cholesterol mg/dL Blood Type O Positive Antibody Screen Negative Microbiology and Other Data: Microbiology 08/29/16 15:08 Nasal Screen MRSA (PCR)([place]) - Final Nasal Mrsa Negative Assess/Plan/Problems-Billing Assessment: Ms. Centeno is a 75 yo female with a PMH of HTN and kidney cancer who presented with c/o left visual loss, falling to the right and not feeling well who was given TPA for CVA with resolving symptoms, found to be in afib (new dx). - Patient Problems (1) CVA (cerebral vascular accident) Comment: - S/P tpa - no signs of bleeding; patient presenting symptoms resolved; no deficits. - CT brain negative x2; head/neck CTA normal. MRI shows small acute or subacute ischemic focus at the right parietal lobe. - Noted to be in Afib (new dx) - No PFO noted on TTE. - Appreciate neurology consult. Dr. Juarez recommends eliquis to start tonight. - Continue statin. (2) Afib Comment: - New dx. Rate controlled with HR 70-90's. - [id number] score: 5. ASA 325 mg daily only for now; eliquis recommended per neurology. (3) HTN (hypertension) Comment: - SBP elevated, resume valsartan/hctz. Will need close follow up with PCP for BP management. (4) DVT prophylaxis Current Visit: Yes Status: Acute Code(s): SFS7998 - SNOMED Code(s): 034107179 Comment: - SCDs (5) DNR (do not resuscitate) Status and Disposition: Inpatient with CVA. Discharge to home.
[2016-09-01 15:59] VITALS: BP 138/78
[2016-09-01] MEDS ORDERED: Potassium Chlor TAB* 20 MEQ TAB.ER PO ONE (17:11)
[2016-09-01] MEDS: Atorvastatin* 80 MG TAB PO SCH (17:21)
--- NOTE | 2016-09-02 03:53 | PN ---
CC: Dr. Rodriguez PROGRESS NOTE: DATE OF FOLLOWUP: 09/01/16 HISTORY: No acute overnight events. She is feeling at her baseline. She is ambulating well. MEDICATIONS: 1. Tylenol as needed for pain. 2. Aspirin 325 mg daily. 3. Lipitor 80 mg daily. 4. Hydralazine 10 mg IV q.4 p.r.n. 5. Zofran as needed for nausea. PHYSICAL EXAMINATION: Vital Signs: Temperature 98.2, blood pressure 157/91, heart rate 89, oxygen saturation 96% on room air. A formal examination was not completed as the majority of the visit was spent in counseling and educ ation. On observation, the patient was seated comfortably in the chair beside her bed. She is not wearing any supplemental oxygen. Her speech is full and without dysarthria or aphasia. She had no gaze deviation. She had full spontaneous versions. On observation, she has full strength in her up per and lower extremities. IMPRESSION: A 75-year-old woman with hypertension and newly diagnosed atrial fibrillation, who pres ented on 08/29/16 with forced gaze deviation to the right and left homonymous hemianopsia and receiv ed tPA. She has had an excellent recovery and is back to baseline with small areas of stroke noted on her MRI scan. Her MRI also notes evidence of small cerebral microbleeds, which are likely hypert ensive in nature. We discussed today that the risks of further stroke without anticoagulation for h er atrial fibrillation likely outweigh the risks of bleeding complications from anticoagulation in t he setting of these hypertensive microbleeds. I recommended that she start Eliquis after discussion of risks and benefits, and she was in agreement. She should not be on any antiplatelet agents whil e on this medication given the presence of her hypertensive microbleeds. In addition, as an outpati ent, she is going to need more stringent blood pressure control with a goal of 130/80 mmHg. At this point, she is on one agent which has not been yet restarted but should be done so at this time. If as an outpatient, her blood pressure remains difficult to control, consideration should be given to referral to Nephrology or Cardiology. I will see the patient back in my office in about 8 weeks fo r followup. [id number]/[facility] #: [id number]
--- NOTE | 2016-09-02 04:09 | DS ---
CC: Dr. Rodriguez* DISCHARGE SUMMARY: DATE OF ADMISSION: 08/29/16 DATE OF DISCHARGE: 09/01/16 PRIMARY CARE PHYSICIAN: Dr. Rodriguez. ATTENDING PHYSICIAN: America Ceron MD* (dictation provided by Julia Barbosa NP) PRIMARY DIAGNOSES: 1. Acute cerebrovascular accident, right parietal lobe. 2. Atrial fibrillation. SECONDARY DIAGNOSES: 1. History of hypertension. 2. History of kidney cancer, status post kidney tumor removal. MEDICATIONS AT THE TIME OF DISCHARGE: 1. Eliquis 5 mg p.o. b.i.d. 2. Valsartan/hydrochlorothiazide 320/25 one tab p.o. daily. 3. Atorvastatin 80 mg p.o. daily. HOSPITAL COURSE: Ms. Centeno is a 75-year-old female with a past medical history of hypertension and kidney cancer, who presented to the hospital on 08/29/16 with concern for a left visual field loss and not feeling well. Please see the dictated H and P from Shankar Hagan, nurse practitioner, for complete details. In brief, the patient noted at about 7:30 a.m. that she awoke with difficulty seeing off to the left side. She also felt diaphoretic and nauseated. She also felt that she was falling to the right when trying to walk. In the emergency room, she had a CT of the brain, which showed no intracranial mass or hemorrhage. She also had a CTA of the head and neck, which showed "calcific plaque noted in both internal carotid arteries. Internal carotid arteries demonstrated no evidence of aortic dissection. CTA of the head demonstrates no branch occlusion or aneurysmal dilatation." In the emergency room, the patient was given tPA. Ms. Centeno was admitted to the hospital. Her symptoms all resolved with the administration of tPA and she has remained asymptomatic during this hospitalization. Her workup included a transthoracic echocardiogram, which was read as follows: "Left ventricular chamber size is normal. The estimated ejection fraction is 55 % to 60%. The left atrium is severely dilated. The right atrium is moderate to severely dilated. There is moderate pulmonary hypertension." She had a followup of her CT brain on 08/30/16 which read as follows: "No intracranial hemorrhages noted." And an MRI of the brain was performed on 08/31/16 showing "small acute or subacute ischemic focus of the right parietal lobe, negative for mass effect. Atrophy and stigmata, probable chronic small vessel ischemic disease, a few punctate foci of hemosiderin deposition are noted including at the benton and bilateral cerebral hemispheres consistent with remote punctate intraaxial hemorrhages likely due to small cavernous angiomas." Ms. Centeno was seen in consultation by Dr. Juarez from Neurology. She recommended that the patient be discharged home on Eliquis as at the time of admission, she had been noted to be in atrial fibrillation. Ms. Centeno is doing well today and the plans are for her to be discharged to home on Eliquis for her history of stroke now with AFib and also to follow up with her primary care physician regarding continued management of her blood pressure. The patient's blood pressure has been running systolically upside to 170s to 180s. This was initially with holding of her valsartan/ hydrochlorothiazide. My hope is that this will be better controlled when she resumes this home medication, but she should follow up closely with her PCP in this regard. DISPOSITION: To home. DIET: Low fat, low salt. ACTIVITY: As tolerated. FOLLOWUP PLAN: Please follow up with Dr. Rodriguez, an appointment has been made for the patient prior to discharge. TIME SPENT: Approximately 60 minutes were spent on discharge of this patient; more than half the time spent with the patient at the bedside, reviewing the events leading up to this hospitalization and during this hospitalization, performing the physical examination, and reviewing the plan of care. JULIA BARBOSA NP [id number]/[facility] [place] #: [id number] [place]
== END 2016-09-01 17:34 | disposition home health service (06) | DRG 63 ==
LOC: ED 10:22 → ICU 13:53 → MEDTELE 08-31 14:59
PROVIDERS: ADMIT Internal Medicine; ATTEND Internal Medicine
DX: I63.9 Cerebral infarction, unspecified (principal); I27.2 Other secondary pulmonary hypertension; I48.91 Unspecified atrial fibrillation; I10 Essential (primary) hypertension; Z66 Do not resuscitate; H54.62 Unqualified visual loss, left eye, normal vision right eye; E66.9 Obesity, unspecified; R29.702 NIHSS score 2; H53.47 Heteronymous bilateral field defects; E78.5 Hyperlipidemia, unspecified; D18.02 Hemangioma of intracranial structures; I65.23 Occlusion and stenosis of bilateral carotid arteries; Z85.528 Personal history of other malignant neoplasm of kidney; Z82.49 Family history of ischemic heart disease and other diseases of the circulatory system; Z81.1 Family history of alcohol abuse and dependence; Z80.49 Family history of malignant neoplasm of other genital organs; Z68.38 Body mass index [BMI] 38.0-38.9, adult; Z79.01 Long term (current) use of anticoagulants
CPT/HCPCS: 36415; 70450; 70496; 70498; 70551; 71010; 80048; 80053; 80061; 81003; 81015; 83036; 83605; 83735; 84484; 85025; 85610; 85730; 86850; 86900; 86901; 87086; 87641; 93005; 93306; 94760; A9270-GY; J0360; J2997; J3475; J3480; Q9967

== ENCOUNTER 2017-10-08 13:09 | Emergency (ER) | payer MEDICARE ==
--- NOTE | 2017-10-08 13:43 | ED ---
Adult Trauma - HPI Summary HPI Summary: The pt is a 77 y/o female presenting to [facility] c/o a head and R shoulder injury s/p a fall this morning. She was trying to get off her wheelchair when her knees gave out, hitting her R shoulder and head on the carpet. She landed on her back. The R shoulder pain is rated 5/10 in intensity and is aggravated by movement. She notes neck pain and R shoulder pain but denies LOC, light headedness, vomiting, incontinence, and PRESLEY. The pt received a shot of hydrocortisone on her L knee yesterday and states that she is on Eliquis. - History of Current Complaint Chief Complaint: EDHeadInjury Stated Complaint: FALL/RT SHLDR PAIN Hx Obtained From: Patient Hx Last Menstrual Period: N/A Mechanism of Injury: Fall Onset/Duration: Started Hours Ago - Today morning Onset of Pain: Hours Onset Severity: Moderate Current Severity: Moderate Pain Intensity: 5 Pain Scale Used: 0-10 Numeric Location: Head, Other - Shoulder Aggravating Factor(s): Movement Associated Signs & Symptoms: Positive: Negative - LOC, light headedness, vomiting, incontinence, and PRESLEY, Other: - Neck pain, R shoulder pain - Additional Pertinent History Primary Care Physician: [id number] - Allergy/Home Medications Allergies/Adverse Reactions: Allergies Allergy/AdvReac Type Severity Reaction Status Date / Time No Known Allergies Allergy Verified 10/08/17 13:23 PMH/Surg Hx/FS Hx/Imm Hx Previously Healthy: No Endocrine/Hematology History: Denies: Hx Diabetes Cardiovascular History: Reports: Hx Hypertension Denies: Hx Pacemaker/ICD History: Reports: Other Problems/Disorders - hx of right kidney cancer Denies: Hx Renal Disease Musculoskeletal History: Reports: Hx Arthritis, Other Musculoskeletal History Sensory History: Reports: Hx Contacts or Glasses Denies: Hx Hearing Aid Opthamlomology History: Reports: Hx Contacts or Glasses Neurological History: Reports: Hx CVA - 2016 Psychiatric History: Denies: Hx Panic Disorder - Cancer History Cancer Type, Location and Year: RIGHT KIDNEY - Surgical History Surgery Procedure, Year, and Place: removal of a piece of the right kidney - Immunization History Immunizations Up to Date: Yes Infectious Disease History: No Infectious Disease History: Denies: Traveled Outside the [place] in Last 30 Days - Family History Known Family History: Positive: Cardiac Disease - [place] BUT OTHERWISE NO HISTORY, Hypertension, Other - CERVICAL CA, ETOH ABUSE Negative: Diabetes - Social History Occupation: Retired Lives: With Family Alcohol Use: None Hx Substance Use: No Substance Use Type: Reports: None Hx Tobacco Use: No Smoking Status (MU): Former Smoker Review of Systems Constitutional: Negative - LOC, lightheadedness ENT: Other - Positive: Neck pain Negative: Chest Pain Negative: Shortness Of Breath, Cough Negative: Vomiting Negative: incontinence Positive: Other - Positive: R shoulder pain Negative: Rash Negative: Headache Negative: Anxious, Depressed All Other Systems Reviewed And Are Negative: No Physical Exam - Summary Physical Exam Summary: Appearance: Alert, conversive, nontoxic appearing; obese Skin: Warm, dry, no mottling, no rashes, no contusions HEENT: EOMI, PERRL, moist mucous membranes; No contusions to the skull Neck: No masses on the neck, supple; No neck swelling Respiratory: Clear to auscultation, breath sounds present, no rales, no rhonchi , no wheezes Cardiovascular: RRR, pulses are symmetrical in both lower and upper extremities Abdomen: Soft, non-tender Bowel Sounds: Present Musculoskeletal: No obvious deformity; Pt deferred raising her L arm; Good radial pulses; No tenderness to midline of her back ; Good ROM of bilateral hips ; symmetrical bilateral pedal pulses ; swelling of LE; LLE is pink and tender to palpation Neurological: A&Ox3, CN II-XII Intact, moving all extremities symmetrically GCS: 15 Psychiatric: Normal affect and mood Triage Information Reviewed: Yes Vital Signs On Initial Exam: Initial Vitals Temp Pulse Resp BP Pulse Ox 97 F 77 16 161/101 94 10/08/17 13:19 10/08/17 13:19 10/08/17 13:19 10/08/17 13:19 10/08/17 13:19 Vital Signs Reviewed: Yes Appearance: Positive: Well-Nourished Skin: Positive: Warm Head/Face: Positive: Normal Head/Face Inspection Eyes: Positive: Normal ENT: Positive: Normal ENT inspection Neck: Positive: Supple Diagnostics - Vital Signs Vital Signs Temp Pulse Resp BP Pulse Ox 10/08/17 13:19 97 F 77 16 161/101 94 - Laboratory Result Diagrams: 10/08/17 14:41 10/08/17 14:41 Lab Statement: Any lab studies that have been ordered have been reviewed, and results considered in the medical decision making process. - Radiology CXR Radiology Interpretation Completed By: Radiologist - IMPRESSION: NO ACTIVE CARDIOPULMONARY DISEASE. The ED physician has reviewed this radiology report. R shoulder X-Ray Radiology Interpretation Completed By: Radiologist - IMPRESSION: Superiorly subluxed humeral head without fracture. The ED physician has reviewed this radiology report. Pelvic X-Ray Radiology Interpretation Completed By: Radiologist - IMPRESSION: NO ACUTE OSSEOUS INJURY. IF SYMPTOMS PERSIST, RECOMMEND REPEAT IMAGING. The ED physician has reviewed this radiology report. - CT Brain CT CT Interpretation Completed By: Radiologist - IMPRESSION: NO ACUTE INTRACRANIAL PATHOLOGY. CHRONIC SMALL VESSEL ISCHEMIC CHANGES The ED physician has reviewed this radiology report. Cervical spine CT CT Interpretation Completed By: Radiologist - IMPRESSION: 1. OSTEOPENIA. 2. DEGENERATIVE DISC DISEASE AND OSTEOARTHRITIS. 3. NO ACUTE OSSEOUS INJURY TO THE CERVICAL SPINE. The ED physician has reviewed this radiology report. Re-Evaluation - Re-Evaluation First Eval Re-Evaluation Time: 17:27 Change: Improved - Discussed with the pt the importance of wearing the sling and the importance of ROM exercises and advised her to follow up with an orthopedist. The pt was agreeable to this plan. Adult Trauma Course/Dx - Course Course Of Treatment: A 77 year-old F presents to the ED with a CC of a head and R shoulder injury s/p a fall this morning. She was trying to get off her wheelchair when her knees gave out, hitting her R shoulder and head on the carpet. She landed on her back. The R shoulder pain is rated 5/10 in intensity and is aggravated by movement. She notes neck pain and R shoulder pain but denies LOC, light headedness, vomiting, incontinence, and PRESLEY. The pt received a shot of hydrocortisone on her L knee yesterday and states that she is on Eliquis. A CXR, R shoulder X-Ray and pelvis X-Ray do not reveal any fractures . A brain CT, and cervical spine CT are all negative. Physical exam revealed no midline tenderness of the back, a swelling of LE; the LLE is pink and tender to palpation. The patient deferred raising her L arm due to pain. The pt was agreeable to this plan. The patient will be discharged with a final Dx of arthritis and frequent falls. I discussed with the pt the importance of wearing the sling and the importance of ROM exercises and advised her to follow up with an orthopedist for an MRI.She is agreeable with this plan. Allergies noted. - Diagnoses Provider Diagnoses: Arthritis, Frequent falls Discharge - Sign-Out/Discharge Documenting (check all that apply): Patient Departure - DC - Discharge Plan Condition: Stable Disposition: HOME Prescriptions: HYDROcodone/ACETAMIN 5-325 MG* [[place] 5-325 TAB*] 2 tab PO Q6H PRN #20 tab MDD 8 PRN Reason: Pain - Severe Patient Education Materials: Fall Prevention (ED), Arthritis (ED) Referrals: Almas Rodriguez MD [Primary Care Provider] - 3 Days Additional Instructions: wear the sling as instructed. take the norco at night time for severe pain. return if worse or any new symptoms. Take all other medications as previously instructed. Follow up with your orthopedic surgeon. - Billing Disposition and Condition Condition: STABLE Disposition: Home - Attestation Statements Document Initiated by Scribe: Yes Documenting Scribe: Ale Fountain Provider For Whom Jaquan is Documenting (Include Credential): Dr. Shiela Ceballos MD Scribe Attestation: Ale Batista , scribed for Dr. Shiela Ceballos MD on 10/13/17 at 1005. Scribe Documentation Reviewed: Yes Provider Attestation: The documentation as recorded by the Ale heredia accurately reflects the service I personally performed and the decisions made by , Dr. Shiela Ceballos MD
--- NOTE | 2017-10-08 14:40 | RAD ---
HISTORY: fall, on elaquis COMPARISONS: August 30, 2016 TECHNIQUE: Multiple contiguous axial CT scans were obtained of the head without intravenous contrast. FINDINGS: HEMORRHAGE/INFARCT: There is no hemorrhage or acute infarct. MASSES/SHIFT: There is no mass or shift. EXTRA-AXIAL SPACES: There are no extra-axial fluid collections. SULCI AND VENTRICLES: The sulci and ventricles are normal in size and position for the patient's stated age. CEREBRUM: There is hypoattenuation of the periventricular and subcortical white matter. BRAINSTEM: There are no focal parenchymal abnormalities. CEREBELLUM: There are no focal parenchymal abnormalities. VESSELS: The vessels are grossly normal. PARANASAL SINUSES: The paranasal sinuses are clear. ORBITS: The orbits are unremarkable. BONES AND SOFT TISSUE: No bone or soft tissue abnormalities are noted. OTHER: None IMPRESSION: NO ACUTE INTRACRANIAL PATHOLOGY. CHRONIC SMALL VESSEL ISCHEMIC CHANGES
--- NOTE | 2017-10-08 14:42 | RAD ---
HISTORY: head trauma on elaquis COMPARISONS: None TECHNIQUE: Multiple contiguous axial CT scans were obtained of the cervical spine without intravenous contrast, with coronal and sagittal multiplanar reformations. FINDINGS: BRAIN: The visualized brain is unremarkable CENTRAL CANAL: Evaluation of the central canal is limited on CT technique; however, there is no obvious canalicular mass or epidural hemorrhage. ALIGNMENT: There is straightening of the cervical lordosis. VERTEBRAL BODIES: There is diffuse osteopenia. There is multilevel anterolateral marginal osteophyte formation most pronounced at C6-C7 and C7-T1. There is no displaced fracture. JOINTS: There is uncovertebral and facet osteoarthritis. There is osteoarthritis of the atlantoaxial articulation. MUSCULATURE: Unremarkable INTERVERTEBRAL DISCS: There is diffuse loss of intervertebral disc height. AXIAL IMAGES: C2-C3: There is no osseous neural foraminal narrowing or central canal stenosis. C3-C4: There is no osseous neural foraminal narrowing or central canal stenosis. C4-C5: There is bilateral facet hypertrophy. There is marginal osteophyte formation at the neural foramina bilaterally. There is mild bilateral neuroforaminal narrowing. There is no significant central canal stenosis. C5-C6: There is a broad-based disc osteophyte complex with bilateral uncovertebral and facet hypertrophy. There is moderate to severe bilateral neuroforaminal narrowing. There is mild narrowing of the central canal. C6-C7: There is a broad-based disc osteophyte complex with bilateral uncovertebral hypertrophy. There is moderate bilateral neuroforaminal narrowing. There is no osseous central canal stenosis. C7-T1: There is no osseous neural foraminal narrowing or central canal stenosis. SOFT TISSUES: The visualized soft tissues of the neck are unremarkable. The prevertebral fat stripe is preserved. OTHER: None. IMPRESSION: 1. OSTEOPENIA. 2. DEGENERATIVE DISC DISEASE AND OSTEOARTHRITIS. 3. NO ACUTE OSSEOUS INJURY TO THE CERVICAL SPINE.
[2017-10-08 14:50] LABS: ABS Basophils 0 10^3/ul (0-0.2); ABS Eosinophils 0 10^3/ul (0-0.6); ABS Lymphocytes 0.8 10^3/ul (1.0-4.8); ABS Monocytes 0.9 10^3/ul (0-0.8); ABS Neutrophils 12.7 10^3/ul (1.5-7.7); ABS Nucleated RBC 0 10^3/ul; Eosinophil % 0 % (0-6); Hematocrit 43 % (35-47); Hemoglobin 14.7 g/dl (12.0-16.0); Lymphocyte % 5.2 % (25-47); Mean Corpuscular HGB Conc 34 g/dl (31-36); Mean Corpuscular Hemoglobin 29 pg (27-31); Mean Corpuscular Volume 87 fL (80-97); Mean Platelet Volume 8.3 um3 (7.4-10.4); Nucleated Red Blood Cells % 0.1; Platelet Count 303 10^3/ul (150-450); Red Cell Distribution Width 15 % (10.5-15); White Blood Count 14.4 10^3/ul (3.5-10.8)
[2017-10-08 14:59] LABS: INR 0.97 (0.77-1.02)
[2017-10-08 15:14] LABS: EGFR Non-African American 88.6 (>60)
--- NOTE | 2017-10-08 15:24 | RAD ---
HISTORY: pain, s/p fall COMPARISONS: August 29, 2016 VIEWS: 1: frontal portable view of the chest at 3:04 PM FINDINGS: LINES AND TUBES: None. CARDIOMEDIASTINAL SILHOUETTE: The cardiomediastinal silhouette is normal for portable technique. PLEURA: The costophrenic angles are sharp. No pleural abnormalities are noted. LUNG PARENCHYMA: The lungs are clear. ABDOMEN: The upper abdomen is clear. There is no subphrenic gas. BONES AND SOFT TISSUES: No bone or soft tissue abnormalities are noted. IMPRESSION: NO ACTIVE CARDIOPULMONARY DISEASE.
--- NOTE | 2017-10-08 15:25 | RAD ---
HISTORY: pain, s/p fall COMPARISONS: None VIEWS: 1 , Single frontal view of the pelvis FINDINGS: BONE DENSITY: Normal. BONES: There is no displaced fracture. JOINTS: There is mild to moderate osteoarthritis of the hips bilaterally. ALIGNMENT: There is no dislocation. SOFT TISSUES: Unremarkable. OTHER FINDINGS: Degenerative changes are noted of the spine.. IMPRESSION: NO ACUTE OSSEOUS INJURY. IF SYMPTOMS PERSIST, RECOMMEND REPEAT IMAGING.
--- NOTE | 2017-10-08 15:26 | RAD ---
Indication: Right humerus pain. 2 views of the right upper arm demonstrates superiorly subluxed humeral head. No fracture is identified. Clavicle is unremarkable. IMPRESSION: Superiorly subluxed humeral head without fracture.
[2017-10-08 17:38] VITALS: BP 165/89
== END 2017-10-08 17:36 | disposition home or self-care (01) ==
LOC: ED 13:09
DX: M19.011 Primary osteoarthritis, right shoulder (principal); R42 Dizziness and giddiness; R11.10 Vomiting, unspecified; Z87.891 Personal history of nicotine dependence; I10 Essential (primary) hypertension; Z91.81 History of falling
CPT/HCPCS: 36415; 70450; 71045; 72125; 72170; 80053; 85025; 85610; 85730; 99283

== ENCOUNTER 2017-12-07 18:19 | Inpatient (IN) | payer MEDICARE ==
[2017-12-07 19:50] LABS: ABS Basophils 0.1 10^3/ul (0-0.2); ABS Eosinophils 0.1 10^3/ul (0-0.6); ABS Lymphocytes 1.3 10^3/ul (1.0-4.8); ABS Monocytes 0.7 10^3/ul (0-0.8); ABS Neutrophils 5.6 10^3/ul (1.5-7.7); ABS Nucleated RBC 0 10^3/ul; Eosinophil % 1.8 % (0-6); Hematocrit 44 % (35-47); Lymphocyte % 17.1 % (25-47); Mean Corpuscular HGB Conc 34 g/dl (31-36); Mean Corpuscular Hemoglobin 30 pg (27-31); Mean Corpuscular Volume 88 fL (80-97); Mean Platelet Volume 7.7 um3 (7.4-10.4); Nucleated Red Blood Cells % 0.1; Platelet Count 291 10^3/ul (150-450); Red Blood Count 4.93 10^6/ul (4.00-5.40); Red Cell Distribution Width 15 % (10.5-15); White Blood Count 7.7 10^3/ul (3.5-10.8)
[2017-12-07 20:06] LABS: EGFR Non-African American 91.9 (>60)
--- NOTE | 2017-12-07 20:20 | ED ---
Hypertension - HPI Summary HPI Summary: This pt is a 77 y/o female presenting to [facility] c/o high blood pressure for the past few days. Per health care technician, pt has had elevated blood pressure around 175/ 110, which is unusual for her. Pt has hx of HTN for which she takes medications BID and stroke last year. Additionally pt reports palpitations characterized as skipping a beat, generalized weakness, fatigue, and edema in lower extremities. Per case packer, pt's LE edema is worse than pt's baseline. biodiesel product manager states according to pt's son, pt's symptoms are similar to when pt was not on any medications. Denies chest pain, dysuria, diarrhea, constipation, cough, fever. - History of Current Complaint Chief Complaint: EDHypertension Stated Complaint: HBP/SWELLING/FATIGUE Time Seen by Provider: 12/07/17 20:03 Hx Obtained From: Patient, Other: - health care technician Hx Last Menstrual Period: N/A Onset/Duration: Started Days Ago, Still Present Timing: Lasting Days Aggravating Factor(s): Nothing Alleviating Factor(s): Nothing Associated Signs & Symptoms: Weakness - generalized, Other: - POS: fatigue, edema in LE, palpitations. NEG: chest pain, dysuria, diarrhea, constipation, cough, fever. - Allergies/Home Medications Allergies/Adverse Reactions: Allergies Allergy/AdvReac Type Severity Reaction Status Date / Time No Known Allergies Allergy Verified 10/08/17 13:23 Home Medications: Home Medications Acetaminophen [Tylenol Extra Strength] 500 mg PO BID 12/07/17 [History Confirmed 12/07/17] Donepezil TAB* [Aricept 5 MG TAB*] 5 mg PO DAILY 12/07/17 [History Confirmed ] Gluc Reis/Chondro Reis A/Vit C/Mn [Glucosamine Chondroitin] 1 tab PO DAILY 12/07/17 [History Confirmed 12/07/17] Metaxalone [Metaxall] 800 mg PO QPM 12/07/17 [History Confirmed 12/07/17] Olmesartan/Hydrochlorothiazide [Olmesartan-Hctz 40-25 mg Tab] 1 tab PO DAILY [History Confirmed 12/07/17] Tizanidine HCl 4 mg PO QID PRN 12/07/17 [History Confirmed 12/07/17] PMH/Surg Hx/FS Hx/Imm Hx Endocrine/Hematology History: Denies: Hx Diabetes Cardiovascular History: Reports: Hx Hypertension Denies: Hx Pacemaker/ICD History: Reports: Other Problems/Disorders - hx of right kidney cancer Denies: Hx Renal Disease Musculoskeletal History: Reports: Hx Arthritis, Other Musculoskeletal History Sensory History: Reports: Hx Contacts or Glasses Denies: Hx Hearing Aid Opthamlomology History: Reports: Hx Contacts or Glasses Neurological History: Reports: Hx CVA - 2016 Psychiatric History: Denies: Hx Panic Disorder - Cancer History Cancer Type, Location and Year: RIGHT KIDNEY - Surgical History Surgery Procedure, Year, and Place: removal of a piece of the right kidney Infectious Disease History: No Infectious Disease History: Denies: Traveled Outside the [place] in Last 30 Days - Family History Known Family History: Positive: Cardiac Disease - [place] BUT OTHERWISE NO HISTORY, Hypertension, Other - CERVICAL CA, ETOH ABUSE Negative: Diabetes - Social History Alcohol Use: None Hx Substance Use: No Substance Use Type: Reports: None Hx Tobacco Use: No Smoking Status (MU): Former Smoker Review of Systems Positive: Fatigue. Negative: Fever Cardiovascular: Other - POS: hypertension Positive: Palpitations. Negative: Chest Pain Negative: Cough Negative: Diarrhea, Other - constipation Negative: dysuria Positive: Edema - in LE, more than usual Positive: Weakness - generalized All Other Systems Reviewed And Are Negative: Yes Physical Exam - Summary Physical Exam Summary: VITAL SIGNS: Reviewed. GENERAL: Patient is a well-developed and nourished female who is lying comfortable in the stretcher. Patient is not in any acute respiratory distress. HEAD AND FACE: No signs of trauma. No ecchymosis, hematomas or skull depressions. No sinus tenderness. EYES: PERRLA, EOMI x 2, No injected conjunctiva, no nystagmus. EARS: Hearing grossly intact. Ear canals and tympanic membranes are within normal limits. MOUTH: Oropharynx within normal limits. NECK: Supple, trachea is midline, no adenopathy, no JVD, no carotid bruit, no c- spine tenderness, neck with full ROM. CHEST: Symmetric, no tenderness at palpation LUNGS: Clear to auscultation bilaterally. No wheezing or crackles. CVS: Irregularly irregular rate and rhythm, S1 and S2 present, no gallops appreciated. Pt has an ejection systolic murmur ABDOMEN: Soft, non-tender. No signs of distention. No rebound, no guarding, and no masses palpated. Bowel sounds are normal. EXTREMITIES: FROM in all major joints, no cyanosis or clubbing. Bilateral lower extremity edema 2+. NEURO: Alert and oriented x 3. No acute neurological deficits. Speech is normal and follows commands. SKIN: Dry and warm Triage Information Reviewed: Yes Vital Signs On Initial Exam: Initial Vitals Temp Pulse Resp BP Pulse Ox 97.8 F 83 18 161/97 96 12/07/17 18:26 12/07/17 18:26 12/07/17 18:26 12/07/17 18:26 12/07/17 18:26 Vital Signs Reviewed: Yes Diagnostics - Vital Signs Vital Signs Temp Pulse Resp BP Pulse Ox 12/07/17 18:26 97.8 F 83 18 161/97 96 - Laboratory Lab Results: Lab Results 12/07/17 12/07/17 Range/Units 19:37 19:37 WBC 7.7 (3.5-10.8) 10^3/ul RBC 4.93 (4.00-5.40) 10^6/ul Hgb 15.0 (12.0-16.0) g/dl Hct 44 (35-47) % MCV 88 (80-97) fL MCH 30 (27-31) pg MCHC 34 (31-36) g/dl RDW 15 (10.5-15) % Plt Count 291 (150-450) 10^3/ul MPV 7.7 (7.4-10.4) um3 Neut % (Auto) 71.7 (38-83) % Lymph % (Auto) 17.1 L (25-47) % [place] % (Auto) 8.6 H (0-7) % Eos % (Auto) 1.8 (0-6) % Baso % (Auto) 0.8 (0-2) % Absolute Neuts (auto) 5.6 (1.5-7.7) 10^3/ul Absolute Lymphs (auto) 1.3 (1.0-4.8) 10^3/ul Absolute Monos (auto) 0.7 (0-0.8) 10^3/ul Absolute Eos (auto) 0.1 (0-0.6) 10^3/ul Absolute Basos (auto) 0.1 (0-0.2) 10^3/ul Absolute Nucleated RBC 0 10^3/ul Nucleated RBC % 0.1 Sodium 141 (135-145) mmol/L Potassium 4.1 (3.5-5.0) mmol/L Chloride 103 (101-111) mmol/L Carbon Dioxide 30 (22-32) mmol/L Anion Gap 8 (2-11) mmol/L BUN 12 (6-24) mg/dL Creatinine 0.63 (0.51-0.95) mg/dL Est GFR ( Amer) 111.2 (>60) Est GFR (Non-Af Amer) 91.9 (>60) BUN/Creatinine Ratio 19.0 (8-20) Glucose 121 H (70-100) mg/dL Calcium 9.9 (8.6-10.3) mg/dL Total Bilirubin 0.60 (0.2-1.0) mg/dL AST 16 (13-39) U/L ALT 14 (7-52) U/L Alkaline Phosphatase 66 (34-104) U/L Total Protein 7.3 (6.4-8.9) g/dL Albumin 4.2 (3.2-5.2) g/dL Globulin 3.1 (2-4) g/dL Albumin/Globulin Ratio 1.4 (1-3) Result Diagrams: 12/08/17 06:54 12/08/17 06:54 Lab Statement: Any lab studies that have been ordered have been reviewed, and results considered in the medical decision making process. - Radiology Chest XR Radiology Interpretation Completed By: ED Physician Summary of Radiographic Findings: negative chest XR - EKG 19:48 Cardiac Rate: NL - at 76 bpm EKG Rhythm: Atrial Fibrillation EKG Comparison: No Significant Change - similar to previous EKG. Summary of EKG Findings: RBBB. Hypertension Course/Dx - Course Assessment/Plan: This pt is a 77 y/o female presenting to [facility] c/o high blood pressure for the past few days. Per health care technician, pt has had elevated blood pressure around 175/110, which is unusual for her. Pt has hx of HTN for which she takes medications BID and stroke last year. Additionally pt reports palpitations characterized as skipping a beat, generalized weakness, fatigue, and edema in lower extremities. biodiesel product manager states according to pt's son, pt's symptoms are similar to when pt was not on any medications. Denies chest pain, dysuria, diarrhea, constipation, cough, fever. Initial blood pressure is 210/ 133. The patient was given Lasix 40 mg IV and labetalol 20 mg IV. After these medications the blood pressure is 148/85 and the patient is feeling better. However because of the bilateral lower extremity edema I discussed the case with Dr. Donato from the hospitalist services who accepted the patient for admission. The patient is hemodynamically stable, alert and oriented 3. - Diagnoses Provider Diagnoses: Uncontrolled hypertension, Bilateral edema of lower extremity - Physician Notifications Discussed Care Of Patient With: Gabriella Donato - hospitalist Time Discussed With Above Provider: 21:33 Instructed by Provider To: Admit As Inpatient Discharge - Sign-Out/Discharge Documenting (check all that apply): Patient Departure - Admit to [facility] - Discharge Plan Condition: Stable Disposition: ADMITTED TO [facility] - Billing Disposition and Condition Condition: STABLE Disposition: Admitted to [facility] - Attestation Statements Document Initiated by Jaquan: Yes Documenting Scribe: Lana May Provider For Whom Jaquan is Documenting (Include Credential): Jey French MD Scribe Attestation: Lana Btaista, scribed for Jey French MD on 12/08/17 at 1817. Scribe Documentation Reviewed: Yes Provider Attestation: The documentation as recorded by the scribLana robertson accurately reflects the service I personally performed and the decisions made by me, Jey French MD
[2017-12-07] MEDS ORDERED: Furosemide IV* 10 MG/ML VIAL (40 MG) IV ONE (20:24)
[2017-12-07 21:17] LABS: Urine Appearance Clear; Urine Blood Negative (Negative); Urine Color Straw; Urine Ketones Negative (Negative); Urine Protein Negative (Negative); Urine Specific Gravity 1.004 (1.010-1.030); Urine Urobilinogen Negative (Negative)
[2017-12-07] MEDS ORDERED: Labetalol IV* 5 MG/ML 20 ML VIAL IV PUSH ONE (21:21)
[2017-12-07] MEDS ORDERED: Acetaminophen TAB* 325 MG PO PRN (21:51)
[2017-12-07] MEDS ORDERED: HYDROcodone/ACETAMIN 5-325 MG* 1 TAB PO PRN (21:55)
[2017-12-07] MEDS ORDERED: hydrALAZINE IV* 20 MG/ML VIAL IV SLOW PU PRN (21:57)
--- NOTE | 2017-12-07 23:48 | ADMNOTE ---
Subjective Date of Service: 12/07/17 Interval History: this is admission h/p this tag writer spent 60 min in eval and f/u of pt during this admission code status so far full son is hcp coming from other state tmr am to decided hpi 77 yr old wf with hx of cva with short memory deficits/ mild dementia as a result a fib on eliquis htn was brought in by vna service to er due to htn when pt and vna checked the b/ps. pt c/o increased leg edema and worsening weakness beyond her baseline for >3 days. vna went to check on her and found her sbp was 175/110 ---> er ---> her sbp was even higher 210/135. pt got one dose of lasix 40 mg ivp times along with labetolol 20 mg ivp times one ---> currently b/p 148/ 89 and hr is 60s-70s. le doppler ordered from er due to leg edema pt c/o. she walks with a walker or a ladan prior to admission. intial ekg showed a fib but hr wnl and no acute st t change seen initial ua neg so is the chest x ray and bnp is 373 with neg wbc phx cva with memory impairment ( short term memory ) 08/2016 mild dementia a fib on eliquis echo done 2016 showed severe dilated la mod to severe dilated ra with preserved lvef 55-60 percent mod mr/mod tr, mod pul htn htn oa knee b/l unsteady gait pxhs s/p r kidney ca excision 4 yrs ago social hx quit cig 50 yrs ago no etoh lives with son walks with walker/ladan has vna to check on her fhx no htn/cm/cva/cad when asked Family History: Findings - denied Social History: Findings - social quit cig 50 yrs ago no etoh lives with son walks with a walker or a ladan Past Medical History: Findings - a fib on elqiuis cva with memory deficits dementia hx of kidney cancer got excision b/l knee oa unsteady gait Review of Systems - Measurements Intake and Output: Intake and Output Last 24 Hours 12/05/17 12/06/17 12/07/17 12/08/17 06:59 06:59 06:59 06:59 Weight 200 lb - Review of Systems General Comments: pertinent as per hpi otherwise the rest ros went over with pt denied beyond her baseline Objective Active Medications: Acetaminophen (Tylenol Tab*) 650 mg PO Q4H PRN PRN Reason: FEVER/PAIN Hydrocodone Bitart/Acetaminophen ([place] 5-325 Tab*) 2 tab PO Q6H PRN PRN Reason: PAIN - SEVERE Apixaban (Eliquis*) 5 mg PO BID FLORA Atorvastatin Calcium (Lipitor*) 80 mg PO DAILY@1700 FLORA Hydralazine HCl (Apresoline Iv*) 5 mg IV SLOW PU Q6H PRN PRN Reason: BLOOD PRESSURE Vital Signs - 8 hr 12/07/17 12/07/17 12/07/17 18:26 20:12 20:14 Temperature 97.8 F Pulse Rate 83 Respiratory 18 20 16 Rate Blood Pressure 161/97 228/115 (mmHg) O2 Sat by Pulse 96 Oximetry 12/07/17 12/07/17 12/07/17 20:44 21:00 21:16 Temperature Pulse Rate 71 Respiratory 19 21 Rate Blood Pressure 187/110 216/133 (mmHg) O2 Sat by Pulse 97 Oximetry 12/07/17 12/07/17 12/07/17 21:23 21:35 22:54 Temperature 98.0 F Pulse Rate 75 67 66 Respiratory 20 14 20 Rate Blood Pressure 210/135 147/85 141/98 (mmHg) O2 Sat by Pulse 96 94 95 Oximetry Oxygen Devices in Use Now: None Appearance: nad Eyes: No Scleral Icterus, PERRLA Ears/Nose/Mouth/Throat: NL Teeth, Lips, Gums, Clear Oropharnyx Neck: NL Appearance and Movements; NL JVP, Trachea Midline, No Thyroid Enlargement, Masses Respiratory: Symmetrical Chest Expansion and Respiratory Effort, Clear to Auscultation Cardiovascular: - - s1 s2 irr irr no murmur Abdominal: NL Sounds; No Tenderness; No Distention, - - obese abd Extremities: - - venous stasis scar lle 3+ ankle to knee/ 2+ edema from knee to thigh; rle 2+ pedal edema ankle to knee/1+ edema from knee to thigh; able to raie ue and le against gravity Skin: - - venous stasis scar Neurological: Alert and Oriented x 3, NL Sensation, NL Muscle Strength and Tone , - - can remember 0/3 things after 5 min Result Diagrams: 12/08/17 06:54 12/08/17 06:54 Additional Lab and Data: Lab Results 12/07/17 12/07/17 Range/Units 19:37 19:37 WBC 7.7 (3.5-10.8) 10^3/ul RBC 4.93 (4.00-5.40) 10^6/ul Hgb 15.0 (12.0-16.0) g/dl Hct 44 (35-47) % MCV 88 (80-97) fL MCH 30 (27-31) pg MCHC 34 (31-36) g/dl RDW 15 (10.5-15) % Plt Count 291 (150-450) 10^3/ul MPV 7.7 (7.4-10.4) um3 Neut % (Auto) 71.7 (38-83) % Lymph % (Auto) 17.1 L (25-47) % [place] % (Auto) 8.6 H (0-7) % Eos % (Auto) 1.8 (0-6) % Baso % (Auto) 0.8 (0-2) % Absolute Neuts (auto) 5.6 (1.5-7.7) 10^3/ul Absolute Lymphs (auto) 1.3 (1.0-4.8) 10^3/ul Absolute Monos (auto) 0.7 (0-0.8) 10^3/ul Absolute Eos (auto) 0.1 (0-0.6) 10^3/ul Absolute Basos (auto) 0.1 (0-0.2) 10^3/ul Absolute Nucleated RBC 0 10^3/ul Nucleated RBC % 0.1 Sodium 141 (135-145) mmol/L Potassium 4.1 (3.5-5.0) mmol/L Chloride 103 (101-111) mmol/L Carbon Dioxide 30 (22-32) mmol/L Anion Gap 8 (2-11) mmol/L BUN 12 (6-24) mg/dL Creatinine 0.63 (0.51-0.95) mg/dL Est GFR ( Amer) 111.2 (>60) Est GFR (Non-Af Amer) 91.9 (>60) BUN/Creatinine Ratio 19.0 (8-20) Glucose 121 H (70-100) mg/dL Calcium 9.9 (8.6-10.3) mg/dL Total Bilirubin 0.60 (0.2-1.0) mg/dL AST 16 (13-39) U/L ALT 14 (7-52) U/L Alkaline Phosphatase 66 (34-104) U/L Total Protein 7.3 (6.4-8.9) g/dL Albumin 4.2 (3.2-5.2) g/dL Globulin 3.1 (2-4) g/dL Albumin/Globulin Ratio 1.4 (1-3) EKG Data: ekg a fib no acute st t changes seen Assess/Plan/Problems-Billing Assessment: 77 yr old wf with hx of cva with short term memory deficits/mild dementia a fib on eliquis since 2017 htn chronic venous stasis scar presented to er with worsening leg edema for three days pt was found very htn at home and in the er but responded to lasix and labetolol - Patient Problems (1) Hypertensive urgency Current Visit: Yes Status: Acute Code(s): I16.0 - HYPERTENSIVE URGENCY SNOMED Code(s): 740936187 Comment: unclear etiology, pt reports she takes her meds routinely - reports high salt meal 1 day before admission (per her centrifugal screen tender) was given labetolol iv + lasix 40 iv on admission -> then back up this morning 200/100 - improved throughout the day. Troponins flat hydralazine prn 5 mg q 6 prn ordered Restart home b/p meds TTE monitor overnight (2) Afib Current Visit: Yes Status: Acute Code(s): I48.91 - UNSPECIFIED ATRIAL FIBRILLATION SNOMED Code(s): 85432782 Comment: rate controlled no acute st t change One episode of rapid afib with rvr 130 - resolved quickly - maybe she needs change in medications -> plan to monitor overnight. will continue outpt meds (3) CVA (cerebral vascular accident) Current Visit: Yes Status: Acute Code(s): I63.9 - CEREBRAL INFARCTION, UNSPECIFIED SNOMED Code(s): 218785038 Comment: due to a fib stable since one yr ago when it occurred supportive care (4) CVA (cerebral vascular accident) Current Visit: No Status: Acute Code(s): I63.9 - CEREBRAL INFARCTION, UNSPECIFIED SNOMED Code(s): 181564887 Comment: - Hx of small acute or subacute ischemic right parietal lobe 08/2016 in which she recieved tpa - Afib dx at that admission - No PFO noted on TTE. Pt started on Eliquis at that time - Continue statin. (5) Leg edema Current Visit: Yes Status: Acute Code(s): R60.0 - LOCALIZED EDEMA SNOMED Code(s): 275468054 Comment: - Doppler negative for dvt - appears to have chronic venous stasis (6) Patient is full code Current Visit: Yes Status: Acute Code(s): Z78.9 - OTHER SPECIFIED HEALTH STATUS SNOMED Code(s): 458194951 Comment: (7) Dementia Current Visit: Yes Status: Acute Code(s): F03.90 - UNSPECIFIED DEMENTIA WITHOUT BEHAVIORAL DISTURBANCE SNOMED Code(s): 95855001 Comment: stable on aricept she is A+Ox3 but poor short term memory (8) DVT prophylaxis Current Visit: Yes Status: Acute Code(s): NFI5366 - SNOMED Code(s): 541949890 Comment: on eliquis
[2017-12-08] MEDS ORDERED: tiZANidine TAB* 2 MG PO PRN (00:29)
[2017-12-08 07:30] LABS: ABS Basophils 0 10^3/ul (0-0.2); ABS Eosinophils 0.1 10^3/ul (0-0.6); ABS Lymphocytes 1.3 10^3/ul (1.0-4.8); ABS Monocytes 0.7 10^3/ul (0-0.8); ABS Neutrophils 4.9 10^3/ul (1.5-7.7); ABS Nucleated RBC 0 10^3/ul; Eosinophil % 1.8 % (0-6); Hematocrit 41 % (35-47); Hemoglobin 13.5 g/dl (12.0-16.0); Lymphocyte % 18.3 % (25-47); Mean Corpuscular HGB Conc 33 g/dl (31-36); Mean Corpuscular Hemoglobin 30 pg (27-31); Mean Corpuscular Volume 89 fL (80-97); Mean Platelet Volume 8.3 um3 (7.4-10.4); Nucleated Red Blood Cells % 0; Platelet Count 270 10^3/ul (150-450); Red Blood Count 4.54 10^6/ul (4.00-5.40); Red Cell Distribution Width 15 % (10.5-15)
--- NOTE | 2017-12-08 07:36 | RAD ---
INDICATION: Weakness. COMPARISON: Comparison is made to prior chest x-ray study from October 08, 2017. TECHNIQUE: Dual-energy PA and lateral views of the chest were obtained. FINDINGS: The heart is upper limits of normal in size and unchanged. There is mitral annular calcification present. The lungs are clear. No pleural effusion is present. IMPRESSION: NO EVIDENCE FOR ACTIVE CARDIOPULMONARY DISEASE. R1
[2017-12-08 07:50] LABS: EGFR Non-African American 88.6 (>60)
--- NOTE | 2017-12-08 08:31 | RAD ---
Indication: Bilateral leg edema Duplex Doppler sonography of the deep venous system of both lower extremities was performed. Bilaterally the common femoral veins, proximal greater saphenous veins, proximal deep femoral veins, femoral veins, popliteal veins, posterior tibial veins and peroneal veins appear patent and compressible. IMPRESSION: NO EVIDENCE OF DEEP VENOUS THROMBOSIS OF EITHER LOWER EXTREMITY IS PRESENT.
[2017-12-08] MEDS ORDERED: hydrALAZINE IV* 20 MG/ML VIAL IV SLOW PU PRN (08:35)
--- NOTE | 2017-12-08 08:35 | PN ---
Subjective Date of Service: 12/08/17 Interval History: Patient reports she feels well today. She denies any PRESLEY. No CP/SOB. She reports he LE's are a little more swollen that usually but states they are edematous at her baseline. Hx of afib on eliquis - rate controlled - not on a BB. Her floral specialist is Dr. King. Per nursing staff around 2pm she got up to go the bathroom and her HR 130's which resolved after she sat back down. Pt asymptomatic Her drapery hand reports high salt meal the day prior but usually she states she tries to avoid salt. Family History: Findings - denied Social History: Findings - social quit cig 50 yrs ago no etoh lives with son walks with a walker or a ladan Past Medical History: Findings - a fib on elqiuis cva with memory deficits dementia hx of kidney cancer got excision b/l knee oa unsteady gait Objective Active Medications: Acetaminophen (Tylenol Tab*) 650 mg PO Q4H PRN PRN Reason: FEVER/PAIN Acetaminophen (Tylenol Tab*) 650 mg PO BID FLORA Hydrocodone Bitart/Acetaminophen ([place] 5-325 Tab*) 2 tab PO Q6H PRN PRN Reason: PAIN - SEVERE Apixaban (Eliquis) 5 mg PO BID FLORA Atorvastatin Calcium (Lipitor*) 80 mg PO DAILY@1700 FLORA Donepezil HCl (Aricept Tab*) 5 mg PO DAILY FLORA Hydralazine HCl (Apresoline Iv*) 5 mg IV SLOW PU Q6H PRN PRN Reason: BLOOD PRESSURE Hydrochlorothiazide (Hydrodiuril Tab*) 25 mg PO DAILY FLORA Metaxalone (Skelaxin Tab*) 800 mg PO QPM [facility] Non-Formulary Medication (Gluc Reis/Chondro Reis A/Vit C/Mn [Glucosamine Chondroitin Tab]) 1 tab PO DAILY FLORA Tizanidine HCl (Zanaflex Tab*) 4 mg PO QID PRN PRN Reason: SPASMS - MUSCLE Valsartan (Diovan Tab*) 320 mg PO DAILY [facility] Vital Signs - 8 hr 12/08/17 12/08/17 12/08/17 03:50 07:52 08:14 Temperature 98.3 F Pulse Rate 69 70 Respiratory 18 Rate Blood Pressure 155/87 200/106 190/100 (mmHg) O2 Sat by Pulse 97 98 Oximetry Oxygen Devices in Use Now: None Appearance: 77 yo female A+O x3 in NAD - poor short term memory Eyes: No Scleral Icterus, PERRLA Ears/Nose/Mouth/Throat: NL Teeth, Lips, Gums, Mucous Membranes Moist Neck: NL Appearance and Movements; NL JVP Respiratory: Symmetrical Chest Expansion and Respiratory Effort, Clear to Auscultation Cardiovascular: NL Sounds; No Murmurs; No JVD, RRR, - - 1-2+ LE edema with vascular changes noted b/l Abdominal: NL Sounds; No Tenderness; No Distention, - - obese Extremities: No Clubbing, Cyanosis Skin: No Rash or Ulcers, No Nodules or Sclerosis Neurological: Alert and Oriented x 3, NL Sensation, NL Muscle Strength and Tone Lines/Tubes/Other Access: Clean, Dry and Intact Peripheral IV Nutrition: Taking PO's Result Diagrams: 12/08/17 06:54 12/08/17 06:54 Additional Lab and Data: Lab Results 12/07/17 12/07/17 Range/Units 19:37 19:37 WBC 7.7 (3.5-10.8) 10^3/ul RBC 4.93 (4.00-5.40) 10^6/ul Hgb 15.0 (12.0-16.0) g/dl Hct 44 (35-47) % MCV 88 (80-97) fL MCH 30 (27-31) pg MCHC 34 (31-36) g/dl RDW 15 (10.5-15) % Plt Count 291 (150-450) 10^3/ul MPV 7.7 (7.4-10.4) um3 Neut % (Auto) 71.7 (38-83) % Lymph % (Auto) 17.1 L (25-47) % [place] % (Auto) 8.6 H (0-7) % Eos % (Auto) 1.8 (0-6) % Baso % (Auto) 0.8 (0-2) % Absolute Neuts (auto) 5.6 (1.5-7.7) 10^3/ul Absolute Lymphs (auto) 1.3 (1.0-4.8) 10^3/ul Absolute Monos (auto) 0.7 (0-0.8) 10^3/ul Absolute Eos (auto) 0.1 (0-0.6) 10^3/ul Absolute Basos (auto) 0.1 (0-0.2) 10^3/ul Absolute Nucleated RBC 0 10^3/ul Nucleated RBC % 0.1 Sodium 141 (135-145) mmol/L Potassium 4.1 (3.5-5.0) mmol/L Chloride 103 (101-111) mmol/L Carbon Dioxide 30 (22-32) mmol/L Anion Gap 8 (2-11) mmol/L BUN 12 (6-24) mg/dL Creatinine 0.63 (0.51-0.95) mg/dL Est GFR ( Amer) 111.2 (>60) Est GFR (Non-Af Amer) 91.9 (>60) BUN/Creatinine Ratio 19.0 (8-20) Glucose 121 H (70-100) mg/dL Calcium 9.9 (8.6-10.3) mg/dL Total Bilirubin 0.60 (0.2-1.0) mg/dL AST 16 (13-39) U/L ALT 14 (7-52) U/L Alkaline Phosphatase 66 (34-104) U/L Total Protein 7.3 (6.4-8.9) g/dL Albumin 4.2 (3.2-5.2) g/dL Globulin 3.1 (2-4) g/dL Albumin/Globulin Ratio 1.4 (1-3) EKG Data: ekg a fib no acute st t changes seen Assess/Plan/Problems-Billing Assessment: 77 yr old wf with hx of cva with short term memory deficits/mild dementia, hx of CVA, a fib on eliquis since 2017 htn chronic venous stasis presented to ER with worsening leg edema for three days pt was found very hypertensive at home admitted for hypertensive urgency - Patient Problems (1) Hypertensive urgency Comment: unclear etiology, pt reports she takes her meds routinely - reports high salt meal 1 day before admission (per her drapery hand) was given labetolol iv + lasix 40 iv on admission -> then back up this morning 200/100 - improved throughout the day. Troponins flat hydralazine prn 5 mg q 6 prn ordered Restart home b/p meds TTE monitor overnight (2) Afib Comment: rate controlled no acute st t change One episode of rapid afib with rvr 130 - resolved quickly - maybe she needs change in medications -> plan to monitor overnight. will continue outpt meds (3) Leg edema Comment: - Doppler negative for dvt - appears to have chronic venous stasis (4) Hyperglycemia Comment: - fasting BG 130 - Pre-diabetes - HbgA1C 6.4% 2016 - add on HbgA1C (5) Dementia Comment: stable on aricept she is A+Ox3 but poor short term memory (6) CVA (cerebral vascular accident) Comment: - Hx of small acute or subacute ischemic right parietal lobe 08/2016 in which she recieved tpa - Afib dx at that admission - No PFO noted on TTE. Pt started on Eliquis at that time - Continue statin. (7) Patient is full code Comment: (8) DVT prophylaxis Comment: on eliquis
[2017-12-08] MEDS ORDERED: Apixaban* 2.5 MG TAB PO SCH (09:00)
[2017-12-08] MEDS ORDERED: Apixaban* 5 MG TAB PO SCH (09:00)
[2017-12-08] MEDS: Hydrochlorothiazide TAB* 25 MG PO SCH (10:48)
[2017-12-08] MEDS: VIT C PO SCH (11:15)
[2017-12-08] MEDS: GLUC SU PO SCH (11:15)
[2017-12-08] MEDS: [UNRECOGNIZED DRUG - OTHER] PO SCH (11:15)
[2017-12-08] MEDS: CHONDRO SU A PO SCH (11:15)
[2017-12-08] MEDS: Acetaminophen TAB* 325 MG PO SCH ×2 (11:22→21:55)
[2017-12-08] MEDS: Donepezil TAB* 5 MG PO SCH (11:23)
[2017-12-08] MEDS: Valsartan TAB* 160 MG PO SCH (11:23)
[2017-12-08] MEDS ORDERED: Hydrochlorothiazide TAB* 25 MG PO ONE (13:48)
--- NOTE | 2017-12-08 14:41 | ECHO ---
Patient: FANNIE MIN [facility] Rec#: [id number] : 1940 Date: 12/08/2017 Age: 77y Height: 168 cm / 66.1 in Weight: 103.56 kg / 228.2 lbs Sex: F BSA: 2.12 Room#: [facility] Admit Date#: 12/07/2017 Type: Inpatient Referring: Jocelynn Persaud Reading: Val March MD Resident Care Spec: Symone Hernandez RDCS CC: Almas Rodriguez MD Transthoracic Echocardiogram Indication: Congestive heart failure BP: 190/100 HR: 67 Rhythm: A-Fib Findings History: CVA, A-fib, PHTN, HTN, former smoker. Technical Comments: The study quality is fair. Completed at 1115. Left Ventricle: The left ventricular chamber size is normal. Mild concentric left ventricular hypertrophy is observed. There is a prominent septal knuckle. There is normal left ventricular systolic function. The estimated ejection fraction is 55-60%. The assessment of diastolic function is non-diagnostic. Left Atrium: The left atrium is severely dilated. Right Ventricle: Moderator Band present. The right ventricle is moderately dilated. The right ventricular global systolic function is low normal. Right Atrium: The right atrial cavity size is severely dilated. Aortic Valve: The aortic valve is trileaflet. The aortic valve leaflets are mildly thickened. There is evidence of aortic sclerosis without stenosis. There is a trace of aortic regurgitation. There is no evidence of aortic stenosis. Mitral Valve: There is mitral annular calcification. Mitral valve anterior leaflet calcification is visualized. There is mild to moderate mitral regurgitation. There is no evidence of mitral stenosis. Tricuspid Valve: The tricuspid valve leaflets are mildly thickened. There is mild tricuspid regurgitation. The right ventricular systolic pressure is estimated at 34 mmHg. There is evidence that pulmonary hypertension may be underestimated. There is no tricuspid stenosis. Pulmonic Valve: The pulmonic valve appears normal. There is a trace pulmonic regurgitation. There is no pulmonic stenosis. Pericardium: There is no significant pericardial effusion. A pericardial fat pad is visualized. Aorta: There is mild dilatation of the ascending aorta. There is no dilatation of the aortic arch. The aortic root is normal in size. Pulmonary Artery: The main pulmonary artery appears normal. Venous: The inferior vena cava appears normal in size. There is a greater than 50% respiratory change in the inferior vena cava dimension. Conclusions Mild concentric left ventricular hypertrophy is observed. There is normal left ventricular systolic function. The estimated ejection fraction is 55-60%. The right ventricular global systolic function is low normal. The right ventricle is moderately dilated. There is a trace of aortic regurgitation, mild sclerosis. There is mild to moderate mitral regurgitation, posterior lateral jet. There is mitral annular calcification and valve sclerosis. There is mild tricuspid regurgitation. The right ventricular systolic pressure is estimated at 34 mmHg, may be underestimated. There is mild dilatation of the ascending aorta. Compared with prior echo of 08/30/16, EF is stable, MR previously moderate, TR previously moderate, PA pressure previously 51 mmHg. Measurements Name Value Normal Range RVIDd (AP) 2D 3.9 cm (0.9 - 2.6) RVDdMajor (2D) 5.4 cm (2.2 - 4.4) RAd ISD 4CH 6 cm (3.4 - 4.9) RA (A4C)W 5 cm (2.9 - 4.6) IVSd (2D) 1.3 cm (0.6 - 1) LVPWd (2D) 1.2 cm (0.6 - 1) LVIDd (2D) 4.7 cm (3.6 - 5.4) LVIDs (2D) 2.9 cm - LV FS (2D) 39 % (25 - 45) Aortic Annulus 1.8 cm (1.4 - 2.6) Ao root diameter (2D) 3.1 cm (2.1 - 3.5) Ascending Ao 3.5 cm (2.1 - 3.4) Aortic arch 2.5 cm (1.8 - 3.4) LA dimension (AP) 2D 6.3 cm (2.3 - 3.8) LAd ISD 4CH 8.1 cm (2.9 - 5.3) LA ISD 4CH W 7.2 cm (2.5 - 4.5) Name Value Normal Range LA ESV BP (A/L) index 105 ml/m2 - Name Value Normal Range MV E-wave Vmax 1.3 m/sec - MV deceleration time 130 msec - LV septal e' Vmax 0.07 m/sec - LV lateral e' Vmax 0.07 m/sec - LV E:e' septal ratio 18.57 ratio - LV E:e' lateral ratio 18.57 ratio - Name Value Normal Range AV Vmax 1.7 m/sec - AV VTI 32.6 cm - AV peak gradient 12 mmHg - AV mean gradient 6 mmHg - LVOT Vmax 0.9 m/sec - LVOT VTI 17.5 cm - LVOT peak gradient 3 mmHg - LVOT mean gradient 2 mmHg - FARHAN Vmax 0.5 m/sec - Name Value Normal Range TR Vmax 2.8 m/sec - TR peak gradient 31 mmHg - RAP 3 mmHg - RVSP 34 mmHg - IVC diameter 1.8 cm - Name Value Normal Range PV Vmax 1.3 m/sec - PV peak gradient 7 mmHg -
[2017-12-08] MEDS: Atorvastatin* 80 MG TAB PO SCH (18:03)
[2017-12-08] MEDS: Metaxalone TAB* 800 MG PO SCH (18:05)
[2017-12-08] MEDS: Apixaban* 5 MG TAB PO SCH (21:56)
[2017-12-09 04:58] LABS: ABS Basophils 0.1 10^3/ul (0-0.2); ABS Eosinophils 0.2 10^3/ul (0-0.6); ABS Lymphocytes 1.4 10^3/ul (1.0-4.8); ABS Monocytes 0.7 10^3/ul (0-0.8); ABS Neutrophils 4.2 10^3/ul (1.5-7.7); ABS Nucleated RBC 0 10^3/ul; Eosinophil % 2.6 % (0-6); Hematocrit 43 % (35-47); Hemoglobin 14.8 g/dl (12.0-16.0); Lymphocyte % 21.8 % (25-47); Mean Corpuscular HGB Conc 34 g/dl (31-36); Mean Corpuscular Hemoglobin 30 pg (27-31); Mean Corpuscular Volume 89 fL (80-97); Mean Platelet Volume 7.9 um3 (7.4-10.4); Nucleated Red Blood Cells % 0; Platelet Count 285 10^3/ul (150-450); Red Blood Count 4.88 10^6/ul (4.00-5.40); Red Cell Distribution Width 15 % (10.5-15); White Blood Count 6.6 10^3/ul (3.5-10.8)
[2017-12-09] MEDS ORDERED: Magnesium Sulfate 2 GM IV* 2 GM/50 ML BAG IVPB ONE (08:26)
--- NOTE | 2017-12-09 08:59 | PN ---
Subjective Date of Service: 12/09/17 Interval History: Patient reports she feels much better today but states she continues to feels a little weak but thinks this is from laying in bed and its in her "knees". She denies SOB/CP. Denies dizziness, headache. Son at bedside is very concerned that we do not know the cause of her hypertensive episode. He brought a home diary of recorded blood pressures which shows blood pressure since 11/16/17 of uncontrolled blood pressures - SBP between 130-180 and DBP 90-110. Was seen by her primary who told her to reduce her salt intake...possibly started norvasc after that visit but pt didnt start it?? Son is very concerned her feet were purple last week (reported by caregiver) and is concerned it is due to her heart (reported by caregiver). The patients medical records, VS, echo cardiogram were reviewed with the patient and son. I discussed with the son I spoke to Dr. King over the phone and he recommends starting Coreg 6.25 mg BID - patient and family agree with the plan The family would like VNS set up at discharge Family History: Findings - denied Social History: Findings - social quit cig 50 yrs ago no etoh lives with son walks with a walker or a ladan Past Medical History: Findings - a fib on elqiuis cva with memory deficits dementia hx of kidney cancer got excision b/l knee oa unsteady gait Objective Active Medications: Acetaminophen (Tylenol Tab*) 650 mg PO Q4H PRN PRN Reason: FEVER/PAIN Acetaminophen (Tylenol Tab*) 650 mg PO BID [facility] Last Admin: 12/08/17 21:55 Dose: 650 mg Hydrocodone Bitart/Acetaminophen ([place] 5-325 Tab*) 2 tab PO Q6H PRN PRN Reason: PAIN - SEVERE Apixaban (Eliquis*) 5 mg PO BID [facility] Last Admin: 12/08/17 21:56 Dose: 5 mg Atorvastatin Calcium (Lipitor*) 80 mg PO DAILY@1700 [facility] Last Admin: 12/08/17 18:03 Dose: 80 mg Donepezil HCl (Aricept Tab*) 5 mg PO DAILY [facility] Last Admin: 12/08/17 11:23 Dose: 5 mg Hydralazine HCl (Apresoline Iv*) 5 mg IV SLOW PU Q6H PRN PRN Reason: BLOOD PRESSURE Last Admin: 12/08/17 09:09 Dose: 5 mg Hydrochlorothiazide (Hydrodiuril Tab*) 25 mg PO DAILY [facility] Last Admin: 12/08/17 10:48 Dose: Not Given Magnesium Sulfate (Magnesium Sulfate 2 Gm Iv*) 2 gm in 50 mls @ 50 mls/hr IVPB ONCE ONE Stop: 12/09/17 09:25 Metaxalone (Skelaxin Tab*) 800 mg PO QPM [facility] Last Admin: 12/08/17 18:05 Dose: 800 mg Non-Formulary Medication (Gluc Reis/Chondro Reis A/Vit C/Mn [Glucosamine Chondroitin Tab]) 1 tab PO DAILY [facility] Last Admin: 12/08/17 11:15 Dose: Not Given Tizanidine HCl (Zanaflex Tab*) 4 mg PO QID PRN PRN Reason: SPASMS - MUSCLE Valsartan (Diovan Tab*) 320 mg PO DAILY [facility] Last Admin: 12/08/17 11:23 Dose: 320 mg Vital Signs - 8 hr 12/09/17 12/09/17 02:46 07:20 Temperature 97.7 F 97.5 F Pulse Rate 85 70 Respiratory 16 18 Rate Blood Pressure 159/85 150/88 (mmHg) O2 Sat by Pulse 96 95 Oximetry Oxygen Devices in Use Now: None Appearance: 77 yo female A+O x3 in NAD Eyes: No Scleral Icterus, PERRLA Ears/Nose/Mouth/Throat: NL Teeth, Lips, Gums, Mucous Membranes Moist Neck: NL Appearance and Movements; NL JVP Respiratory: Symmetrical Chest Expansion and Respiratory Effort, Clear to Auscultation Cardiovascular: NL Sounds; No Murmurs; No JVD, RRR Abdominal: NL Sounds; No Tenderness; No Distention Extremities: No Clubbing, Cyanosis, - - 1+ LE edema chronic Neurological: Alert and Oriented x 3, NL Sensation, NL Gait, NL Muscle Strength and Tone Lines/Tubes/Other Access: Clean, Dry and Intact Peripheral IV Nutrition: Taking PO's Result Diagrams: 12/09/17 04:52 12/09/17 04:52 Additional Lab and Data: Lab Results 12/07/17 12/07/17 Range/Units 19:37 19:37 WBC 7.7 (3.5-10.8) 10^3/ul RBC 4.93 (4.00-5.40) 10^6/ul Hgb 15.0 (12.0-16.0) g/dl Hct 44 (35-47) % MCV 88 (80-97) fL MCH 30 (27-31) pg MCHC 34 (31-36) g/dl RDW 15 (10.5-15) % Plt Count 291 (150-450) 10^3/ul MPV 7.7 (7.4-10.4) um3 Neut % (Auto) 71.7 (38-83) % Lymph % (Auto) 17.1 L (25-47) % [place] % (Auto) 8.6 H (0-7) % Eos % (Auto) 1.8 (0-6) % Baso % (Auto) 0.8 (0-2) % Absolute Neuts (auto) 5.6 (1.5-7.7) 10^3/ul Absolute Lymphs (auto) 1.3 (1.0-4.8) 10^3/ul Absolute Monos (auto) 0.7 (0-0.8) 10^3/ul Absolute Eos (auto) 0.1 (0-0.6) 10^3/ul Absolute Basos (auto) 0.1 (0-0.2) 10^3/ul Absolute Nucleated RBC 0 10^3/ul Nucleated RBC % 0.1 Sodium 141 (135-145) mmol/L Potassium 4.1 (3.5-5.0) mmol/L Chloride 103 (101-111) mmol/L Carbon Dioxide 30 (22-32) mmol/L Anion Gap 8 (2-11) mmol/L BUN 12 (6-24) mg/dL Creatinine 0.63 (0.51-0.95) mg/dL Est GFR ( Amer) 111.2 (>60) Est GFR (Non-Af Amer) 91.9 (>60) BUN/Creatinine Ratio 19.0 (8-20) Glucose 121 H (70-100) mg/dL Calcium 9.9 (8.6-10.3) mg/dL Total Bilirubin 0.60 (0.2-1.0) mg/dL AST 16 (13-39) U/L ALT 14 (7-52) U/L Alkaline Phosphatase 66 (34-104) U/L Total Protein 7.3 (6.4-8.9) g/dL Albumin 4.2 (3.2-5.2) g/dL Globulin 3.1 (2-4) g/dL Albumin/Globulin Ratio 1.4 (1-3) EKG Data: ekg a fib no acute st t changes seen Assess/Plan/Problems-Billing Assessment: 77 yr old wf with hx of cva with short term memory deficits/mild dementia a fib on eliquis since 2017 htn chronic venous stasis scar presented to er with worsening leg edema for three days pt was found very htn at home and in the er but responded to lasix and labetolol - Patient Problems (1) Hypertensive urgency Comment: unclear etiology suspect multifactorial with home record of uncontrolled BPs (I reviewed this myself) and mild CHF? pt reports she takes her meds routinely - reports high salt meal 1 day before admission (per her snow technician) - per son she eats out often was given labetolol iv + lasix 40 iv on admission -> back on home meds, better blood pressure control -> noted to have HR 130's on ambulation. Discussed with Dr. Benavides 12/09 who stated the patient had a recent holter monitor showing HR 100-120's. He recommends Coreg 6.25 mg BID. Plan to monitor patient overnight on tele on new medication. Continue home medications. Troponins flat TTE - showing no significant changes from prior - EF 55% monitor overnight Follow up with cardiology in 1-2 weeks (2) Afib Comment: rate controlled historically not on any rate controlled meds -> start coreg ( see above) One episode of rapid afib with rvr 130 - resolved quickly Eliquis (3) Leg edema Comment: - Doppler negative for dvt - Hx of lymphedema - Recommended pt elevate her legs throughout the day (4) Hyperglycemia Comment: - fasting BG 130 - Pre-diabetes - HbgA1C 6.4% 2017 - HbgA1C 6.2% - Recommended diet changes - follow up with PCP (pt unaware) (5) Dementia Comment: stable on aricept she is A+Ox3 but poor short term memory (6) CVA (cerebral vascular accident) Comment: - Hx of small acute or subacute ischemic right parietal lobe 08/2016 in which she recieved tpa - Afib dx at that admission - No PFO noted on TTE. Pt started on Eliquis at that time - Continue statin. (7) Patient is full code Comment: (8) DVT prophylaxis Comment: on eliquis Status and Disposition: inpatient. Plan for DC home tomorrow if she is tolerated new medication coreg, continue tele monitoring. Family wants VNS to be set up as same day as discharge. She is being seen at [facility] for PT - family is now askning for home PT but pt is not home bound. OT referral at discharge.
[2017-12-09] MEDS: Donepezil TAB* 5 MG PO SCH (09:03)
[2017-12-09] MEDS: Acetaminophen TAB* 325 MG PO SCH ×2 (09:04→22:48)
[2017-12-09] MEDS: Valsartan TAB* 160 MG PO SCH (09:05)
[2017-12-09] MEDS: Apixaban* 5 MG TAB PO SCH ×2 (09:05→22:49)
[2017-12-09] MEDS: Hydrochlorothiazide TAB* 25 MG PO SCH (09:05)
[2017-12-09] MEDS: CHONDRO SU A PO SCH (10:37)
[2017-12-09] MEDS: [UNRECOGNIZED DRUG - OTHER] PO SCH (10:37)
[2017-12-09] MEDS: GLUC SU PO SCH (10:37)
[2017-12-09] MEDS: VIT C PO SCH (10:37)
[2017-12-09] MEDS: Atorvastatin* 80 MG TAB PO SCH (16:53)
[2017-12-09] MEDS: Metaxalone TAB* 800 MG PO SCH (17:32)
[2017-12-09] MEDS: Carvedilol TAB* 6.25 MG PO SCH (22:48)
[2017-12-10] MEDS: Hydrochlorothiazide TAB* 25 MG PO SCH (09:30)
[2017-12-10] MEDS: Apixaban* 5 MG TAB PO SCH (09:30)
[2017-12-10] MEDS: Carvedilol TAB* 6.25 MG PO SCH (09:30)
[2017-12-10] MEDS: Acetaminophen TAB* 325 MG PO SCH (09:31)
[2017-12-10] MEDS: Valsartan TAB* 160 MG PO SCH (09:32)
[2017-12-10] MEDS: Donepezil TAB* 5 MG PO SCH (09:32)
[2017-12-10] MEDS: CHONDRO SU A PO SCH (09:34)
[2017-12-10] MEDS: [UNRECOGNIZED DRUG - OTHER] PO SCH (09:34)
[2017-12-10] MEDS: VIT C PO SCH (09:34)
[2017-12-10] MEDS: GLUC SU PO SCH (09:34)
[2017-12-10 17:20] VITALS: BP 106/80
--- NOTE | 2017-12-10 22:50 | PN ---
Subjective Date of Service: 12/10/17 Interval History: Patient reports that she is feeling "great". Denies chest pain or shortness of breath. denies abd caitlyn , n/v/d. Family History: Unchanged from Admission - denied Social History: Unchanged from Admission - social quit cig 50 yrs ago no etoh lives with son walks with a walker or a ladan Past Medical History: Unchanged from Admission - a fib on elqiuis cva with memory deficits dementia hx of kidney cancer got excision b/l knee oa unsteady gait Objective Vital Signs - 8 hr 12/10/17 16:06 Temperature 97.6 F Pulse Rate 69 Respiratory 17 Rate Blood Pressure 106/80 (mmHg) O2 Sat by Pulse 95 Oximetry Oxygen Devices in Use Now: None Appearance: alert oriented x3 , no acute distress Eyes: No Scleral Icterus Ears/Nose/Mouth/Throat: Clear Oropharnyx, Mucous Membranes Moist Neck: NL Appearance and Movements; NL JVP, Trachea Midline Respiratory: Symmetrical Chest Expansion and Respiratory Effort, Clear to Auscultation Cardiovascular: NL Sounds; No Murmurs; No JVD, No Edema Abdominal: NL Sounds; No Tenderness; No Distention Extremities: No Edema, No Clubbing, Cyanosis Skin: No Rash or Ulcers Neurological: Alert and Oriented x 3 Nutrition: Taking PO's Result Diagrams: 12/09/17 04:52 12/09/17 04:52 Additional Lab and Data: Lab Results 12/07/17 12/07/17 Range/Units 19:37 19:37 WBC 7.7 (3.5-10.8) 10^3/ul RBC 4.93 (4.00-5.40) 10^6/ul Hgb 15.0 (12.0-16.0) g/dl Hct 44 (35-47) % MCV 88 (80-97) fL MCH 30 (27-31) pg MCHC 34 (31-36) g/dl RDW 15 (10.5-15) % Plt Count 291 (150-450) 10^3/ul MPV 7.7 (7.4-10.4) um3 Neut % (Auto) 71.7 (38-83) % Lymph % (Auto) 17.1 L (25-47) % [place] % (Auto) 8.6 H (0-7) % Eos % (Auto) 1.8 (0-6) % Baso % (Auto) 0.8 (0-2) % Absolute Neuts (auto) 5.6 (1.5-7.7) 10^3/ul Absolute Lymphs (auto) 1.3 (1.0-4.8) 10^3/ul Absolute Monos (auto) 0.7 (0-0.8) 10^3/ul Absolute Eos (auto) 0.1 (0-0.6) 10^3/ul Absolute Basos (auto) 0.1 (0-0.2) 10^3/ul Absolute Nucleated RBC 0 10^3/ul Nucleated RBC % 0.1 Sodium 141 (135-145) mmol/L Potassium 4.1 (3.5-5.0) mmol/L Chloride 103 (101-111) mmol/L Carbon Dioxide 30 (22-32) mmol/L Anion Gap 8 (2-11) mmol/L BUN 12 (6-24) mg/dL Creatinine 0.63 (0.51-0.95) mg/dL Est GFR ( Amer) 111.2 (>60) Est GFR (Non-Af Amer) 91.9 (>60) BUN/Creatinine Ratio 19.0 (8-20) Glucose 121 H (70-100) mg/dL Calcium 9.9 (8.6-10.3) mg/dL Total Bilirubin 0.60 (0.2-1.0) mg/dL AST 16 (13-39) U/L ALT 14 (7-52) U/L Alkaline Phosphatase 66 (34-104) U/L Total Protein 7.3 (6.4-8.9) g/dL Albumin 4.2 (3.2-5.2) g/dL Globulin 3.1 (2-4) g/dL Albumin/Globulin Ratio 1.4 (1-3) EKG Data: ekg a fib no acute st t changes seen Assess/Plan/Problems-Billing Assessment: 77 yr old wf with hx of cva with short term memory deficits/mild dementia a fib on eliquis since 2017 htn chronic venous stasis scar presented to er with worsening leg edema for three days pt was found very htn at home and in the er but responded to lasix and labetolol - Patient Problems (1) Hypertensive urgency Status: Acute Code(s): I16.0 - HYPERTENSIVE URGENCY SNOMED Code(s): 378377771 Comment: unclear etiology suspect multifactorial with home record of uncontrolled BPs (I reviewed this myself) and mild CHF? pt reports she takes her meds routinely - reports high salt meal 1 day before admission (per her licensed guide) - per son she eats out often continue home meds, better blood pressure control -> noted to have HR 130's on ambulation yesterday Discussed with Dr. Benavides 12/09 who stated the patient had a recent holter monitor showing HR 100-120's. He recommends Coreg 6.25 mg BID. Plan to monitor patient overnight on tele on new medication. SBP improved with coreg- tolerated it well - no c/o dizziness SBP 116-136 HR 60-70's Continue home medications. Troponins flat TTE - showing no significant changes from prior - EF 55% monitor overnight Follow up with cardiology in 1-2 weeks (2) Afib Status: Acute Code(s): I48.91 - UNSPECIFIED ATRIAL FIBRILLATION SNOMED Code( s): 00911478 Comment: rate controlled historically not on any rate controlled meds -> start coreg ( see above) One episode of rapid afib with rvr 130 - resolved quickly Eliquis (3) CVA (cerebral vascular accident) Status: Acute Code(s): I63.9 - CEREBRAL INFARCTION, UNSPECIFIED SNOMED Code( s): 481655292 Comment: - Hx of small acute or subacute ischemic right parietal lobe 08/2016 Pt on Eliquis at that time - Continue statin. (4) Dementia Status: Acute Code(s): F03.90 - UNSPECIFIED DEMENTIA WITHOUT BEHAVIORAL DISTURBANCE SNOMED Code(s): 09647002 Comment: stable on aricept she is A+Ox3 but poor short term memory (5) Leg edema Status: Acute Code(s): R60.0 - LOCALIZED EDEMA SNOMED Code(s): 680123047 Comment: - Doppler negative for dvt - Hx of lymphedema - Recommended pt elevate her legs throughout the day - left leg with dry scaley skin -mild redness, no pain or fever no acute signs of infection at this time - instructed family to watch for sign of infection fever, chills, increased redness and pain to that leg. (6) DVT prophylaxis Status: Acute Code(s): UNG2042 - SNOMED Code(s): 867690422 Comment: - SCDs Status and Disposition: inpatient. Plan for DC home tomorrow if she is tolerated new medication coreg, continue tele monitoring. Family wants VNS to be set up as same day as discharge. She is being seen at [facility] for PT - family is now asking for home PT but pt is not home bound. OT referral at discharge. VNS service set up for the patient
--- NOTE | 2017-12-14 10:54 | DS ---
CC: Dr. Rodriguez DISCHARGE SUMMARY: DATE OF ADMISSION: 12/07/17 DATE OF DISCHARGE: 12/10/17 PROVIDER: Margo Juarez NP ATTENDING PHYSICIAN: Dr. Rubens Tijerina (dictated by Margo Juarez NP). PRIMARY CARE PROVIDER: Dr. Almas Rodriguez. PRIMARY DIAGNOSIS: Hypertension. SECONDARY DIAGNOSES: 1. Cerebrovascular accident in 2017. 2. Mild dementia. 3. Atrial fibrillation, on Eliquis. 4. Hypertension. STUDIES COMPLETED WHILE IN THE HOSPITAL: She had an electrocardiogram on 12/07/17, which showed atri al fibrillation at rate of 76. She had a chest x-ray on 12/07/17. Radiologist's impression: No evidence of active cardiopulmonary disease. She had a venous Doppler done on 12/08/17. No evidence of deep vein thrombosis in either of the lowe r extremities. She had a transthoracic echocardiogram on 12/08/17, mild concentric left ventricular hypertrophy is o bserved, normal left ventricular systolic function with an estimated ejection fraction of 55% to 60%. The right ventricular global systolic function is low normal. The right ventricle is mildly dilate d. There is trace of aortic regurgitation, mild sclerosis. There is [id number] mitral regurgi tation, posterolateral jet, mild angular calcification and valve sclerosis. There is mild tricuspid r egurgitation. The right ventricular systolic pressure is 34, maybe underestimated. There is mild di lation of the ascending aorta compared to prior echo on August 2015, the EF is stable, previously was moderate, TR was previously moderate, PA pressure was previously 51. DISCHARGE MEDICATIONS: New home medication: Carvedilol 6.25 mg p.o. b.i.d. Continued home medications: 1. Glucosamine 1 tab p.o. daily. 2. Tizanidine HCl 4 mg p.o. four times a day p.r.n. 3. Olmesartan/hydrochlorothiazide 40/25 one tablet p.o. daily. 4. 800 mg p.o. q.p.m. 5. Hydrocodone/acetaminophen 5/325 two tablets p.o. q.6 hours as needed for pain. 6. Aricept 5 mg p.o. daily. 7. Eliquis 5 mg p.o. b.i.d. 8. Acetaminophen 500 mg p.o. b.i.d. 9. Atorvastatin 80 mg p.o. daily. HISTORY OF PRESENT ILLNESS AND HOSPITAL COURSE: Ms. Centeno is a 77-year-old female with a past medical history significant for CVA, hypertension, hyperlipidemia, atrial fibrillation, who is brought in by the VNA service to the ER due to her hypertension. The patient complains of increased leg edema and worsening weakness beyond her baseline for 3 days. VNS checked her and her blood pressure was 175/1 10. Her systolic blood pressure was 210/135. She got a dose of Lasix 40 mg IV along with labetalol 20 mg IV x1 and on admission, her blood pressure was down to 148/89, heart rate was in the 60s to 70s . A Doppler of the lower extremities was ordered due to leg edema and the patient complains when she walks with a walker or cane prior to admission. During the hospitalization, the patient was concern ed due to not knowing the cause of her hypertensive episode and the recording of her blood pressures at home, it looked like her systolic blood pressure had been running between 130s to 180s and diastol ic between 90 and 110. She was seen by her primary care, who told to her to reduce her salt intake a nd possibly start Norvasc after that visit, but did not start it. During this hospitalization, her c ardiologist, Dr. Oscar, was consulted over the phone and recommended starting Coreg at 6.25 mg b. i.d. The family was also concerned about her increased weakness and would like in-home geriatric physical therapist apy. This was also set up during this hospitalization at discharge for the patient. The patient was started on Coreg. She was monitored overnight and her heart rate was stable. Her vital signs, her b lood pressure improved to 136/92 and 113/67. The patient on the day of discharge reports that she is feeling very well, she has no symptoms, she denies any dizziness, denies any shortness of breath or chest pain. At this time, she is stable for discharge home. Vital Signs: Blood pressure 113/67, he art rate was 70, respirations 14, O2 saturation 97%, temperature was 97.6. DISCHARGE PLAN: Ms. Centeno will be discharged back home. Activity as tolerated. She should continue w [facility] in-home physical therapy for strength and gait training. The patient will also be set up with [facility] nurse. She should continue on a heart-healthy, low-sodium diet. 1. Hypertension. She should continue on Coreg 6.25 mg p.o. daily along with her olmesartan/hydrochl orothiazide 40/25 one tablet p.o. daily. She should follow up with her primary care provider in 3 to 7 days for further evaluation. 2. Atrial fibrillation. She should continue on Coreg 6.25 mg p.o. b.i.d. and Eliquis 5 mg p.o. b.i. d. 3. Dementia. She should continue on her Aricept as previously prescribed. There were no other medi cation adjustments during this hospitalization. She should follow up with her primary care provider in 4 to 7 days. The patient should return to the emergency room for any chest pain, shortness of breath, dizziness, w eakness, syncope, or any other concerning symptoms. This is a summarization of her hospitalization. If further details are needed, please obtain the ent [facility] medical record. TIME SPENT: Time spent on this discharge was approximately 60 minutes, greater than half that time w as spent with the patient discussing discharge plans and instructions. CONDITION ON DISCHARGE: Stable. MARGO JUAREZ NP [id number]/[facility] #: [id number]
== END 2017-12-10 16:53 | disposition home health service (06) | DRG 305 ==
LOC: ED 18:19 → MED 21:45 → OBSVTOIN 12-09 15:48
PROVIDERS: ADMIT Internal Medicine; ATTEND Internal Medicine
DX: I16.0 Hypertensive urgency (principal); F03.90 Unspecified dementia, unspecified severity, without behavioral disturbance, psychotic disturbance, mood disturbance, and anxiety; Z87.891 Personal history of nicotine dependence; I48.91 Unspecified atrial fibrillation; I08.1 Rheumatic disorders of both mitral and tricuspid valves; I27.20 Pulmonary hypertension, unspecified; I10 Essential (primary) hypertension; M17.0 Bilateral primary osteoarthritis of knee; R26.81 Unsteadiness on feet; R60.0 Localized edema; I89.0 Lymphedema, not elsewhere classified; I69.311 Memory deficit following cerebral infarction; Z85.528 Personal history of other malignant neoplasm of kidney; Z82.49 Family history of ischemic heart disease and other diseases of the circulatory system; Z80.49 Family history of malignant neoplasm of other genital organs; Z81.1 Family history of alcohol abuse and dependence; R73.9 Hyperglycemia, unspecified
CPT/HCPCS: 36415; 71046; 80048; 80053; 81003; 82553; 83036; 83735; 83880; 84443; 84484; 85025; 86140; 93005; 93306; 93970; 99284; A9270-GY; G0378; G8978-GP-CK; G8979-GP-CH; J0360; J1940; J3475

== ENCOUNTER 2019-03-21 16:05 | Emergency (ER) | payer MEDICARE ==
--- OUTSIDE RECORDS SUMMARY | 2019-03-21 16:46 | XMS REPORT | Summary of Care ---
:1940 Author Organization [facility] Address [address] [place] [address] Care Team Providers Name Role Phone Almas Rodriguez Primary Care Provider Reason for Visit Reason Comments Follow Up Pt. in for a follow up. Denies Cardiac Symptoms. Echo done on . 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 0 Active (TYLENOL) 325 MG Oral Cap atorvastatin (LIPITOR) Take 1 Tab by 90 Tab 5 03/01/2018 Active 40 MG Oral Tab mouth EVERY EVENING. Losartan Take 1 Tab by 90 Tab 5 07/21/2018 Active Potassium-HCTZ 100-25 mouth DAILY. MG Oral Tab memantine (NAMENDA) 10 Take 1 Tab by 90 Tab 5 10/04/2018 Active MG Oral Tab mouth EVERY MORNING. amLodipine (NORVASC) 5 Take 1 Tab by 90 Tab 5 01/11/2019 Active MG Oral Tab mouth EVERY EVENING. apixaban (ELIQUIS) 5 Take 1 Tab by 180 Tab 1 01/24/2019 Active MG Oral Tab mouth TWICE DAILY. escitalopram (LEXAPRO) Take 1 Tab by 90 Tab 1 01/24/2019 Active 5 MG Oral Tab mouth DAILY. spironolactone Take 1 Tab by 90 Tab 1 01/24/2019 Active (ALDACTONE) 25 MG Oral mouth DAILY. Tab Nystatin [id number] 1 g by Apply 60 g 11 01/30/2019 Active UNIT/GM Apply externally route externally Powder FOUR TIMES DAILY NEEDED (rash in bilateral groin area.). 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 Essential hypertension, benign 12/13/2007 Class 2 obesity in adult 12/13/2007 documented as of this encounter (statuses as of 03/13/2019) Resolved Problems Problem Noted Date Resolved Date Grief reaction 01/11/2018 03/01/2018 Cerebrovascular accident (CVA) due to embolism of right 08/04/2017 09/03/2017 carotid artery Leg ulcer, left, limited to breakdown of skin 08/04/2017 03/01/2018 Lymphedema of leg 09/10/2015 12/09/2018 Left knee pain 12/08/2012 10/01/2017 Osteoarth NOS-l/leg left knee 03/24/2012 10/01/2017 documented as of this encounter (statuses as of 03/13/2019) Immunizations Name Administration Dates Next Due Influenza (IM) Preservative Free 11/30/2014, 11/24/2013, 01/18/2013, 12/13/2007 Influenza Vaccine 65 Yrs + 12/09/2018 Influenza Vaccine High Dose 11/24/2017, 12/03/2016 PNEUMOCOCCAL POLYSACCHARIDE VACCINE 12/30/2007 Pneumococcal Conjugate(13 Valent) 10/17/2014 ZOSTER (ZOSTAVAX) VACCINE 10/21/2012 documented as of this encounter Social History Tobacco Use Types Packs/Day Years Used Date Former Smoker Quit: 02/16/1968 Smokeless Tobacco: Never Used Alcohol Use Drinks/Week oz/Week Comments No quit drinking in 1997 Sex Assigned at Date Recorded Not on file Job Start Date Occupation Industry Not on file Not on file Not on file Travel History Travel Start Travel End No recent travel history available. documented as of this encounter Last Filed Vital Signs Vital Sign Reading Time Taken Comments Blood Pressure 110/52 03/13/2019 10:44 AM EST Pulse 64 03/13/2019 10:44 AM EST irregular Temperature - - Respiratory Rate - - Oxygen Saturation - - Inhaled Oxygen Concentration - - Weight 109.8 kg (242 lb) 03/13/2019 10:44 AM EST Height 172.7 cm (5' 8") 03/13/2019 10:44 AM EST Body Mass Index 36.8 03/13/2019 10:44 AM EST documented in this encounter Patient Instructions Patient InstructionsMcGhulam Muñoz MD - 03/13/2019 10:20 AM EST No medication changes today. Continue to work on weight loss and fall prevention. Follow up with me in about 6 months with Breonna Honeycutt or Karen Rosa and with me in 1 year.Electronically signed by Ghulam Oscar MD at 2019 11:06 AM EST documented in this encounter Progress Notes Ghulam Oscar MD - 03/13/2019 10:20 AM EST [facility] Note Patient: Torie Centeno Date of : 1940 Date of Service: 03/13/2019 REFERRING PRACTITIONER: Almas Rodriguez PRIMARY CARE PROVIDER: Almas Rodriguez Chief Complaint: Chief Complaint Patient presents with Follow Up Pt. in for a follow up. Denies Cardiac Symptoms. Echo done on 02/03/19. History of Present Illness: We had the pleasure of seeing Torie Centeno today at the [facility]. She is a 78-y.o. female with HTN, obesity , RCC, prior CVA August 31, dementia, diastolic CHF, and atrial fibrillation. Ms. Centeno returns to cardiology clinic today for routine f/u. Since her last visit with me, she reports feeling fine from a cardiac standpoint. She notes that she continues to have some significant LEweakness as well as memory loss. She's been seeing Dr. Stovall and he recently did MRIs of her brain and spine and he told them that her weakness and balance issues are primarily related to her prior stroke. I had checked a CPK at her last visit and that was completely normal. No chest pains/pressure or limiting dyspnea but she's not able to do much activity at all d/t her LEweakness and balance issues. No recent falls, and her son and aide report that transfers have become fairly difficult. Denies any palpitations, lightheadedness, or syncope. No orthopnea or paroxysmal dyspnea, but does have some mild and chronic R|>L lower extremity edema. 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 Allergies Allergen Reactions Demerol SPECTACLE TRUER Reaction Patient reports she "passes out" Current Outpatient Medications Medication Sig Acetaminophen (TYLENOL) 325 MG Oral Cap Take by mouth. amLodipine (NORVASC) 5 MG Oral Tab Take 1 Tab by mouth EVERY EVENING. apixaban (ELIQUIS) 5 MG Oral Tab Take 1 Tab by mouth TWICE DAILY. atorvastatin (LIPITOR) 40 MG Oral Tab Take 1 Tab by mouth EVERY EVENING. escitalopram (LEXAPRO) 5 MG Oral Tab Take 1 Tab by mouth DAILY. Losartan Potassium-HCTZ 100-25 MG Oral Tab Take 1 Tab by mouth DAILY. memantine (NAMENDA) 10 MG Oral Tab Take 1 Tab by mouth EVERY MORNING. Nystatin [id number] UNIT/GM Apply externally Powder 1 g by Apply externally route FOUR TIMES DAILY NEEDED (rash in bilateral groin area.). spironolactone (ALDACTONE) 25 MG Oral Tab Take 1 Tab by mouth DAILY. No current facility-administered medications for this visit. Family History Problem Relation Age of Onset Anesth Problems Mother Cancer Mother 90 cervical Arthritis Mother Arthritis Father Clotting Disorder No family history Diabetes No family history Heart Disease No family history Hypertension No family history Kidney Disease No family history Thyroid Disease No family history Social History Socioeconomic History Marital status: Spouse name: Not on file Number of children: Not on file Years of education: Not on file Highest education level: Not on file Occupational History Not on file Social Needs Financial resource strain: Not on file Food insecurity Worry: Not on file Inability: Not on file Transportation needs Medical: Not on file Non-medical: Not on file Tobacco Use Smoking status: Former Smoker Last attempt to quit: 02/16/1968 Years since quittin.1 Smokeless tobacco: Never Used Substance and Sexual Activity Alcohol use: No Comment: quit drinking in 1997 Drug use: No Sexual activity: Yes Partners: Male Lifestyle Physical activity Days per week: Not on file Minutes per session: Not on file Stress: Not on file Relationships Social connections Talks on phone: Not on file Gets together: Not on file Attends yarsani service: Not on file Active member of club or organization: Not on file Attends meetings of clubs or organizations: Not on file Relationship status: Not on file Intimate partner violence Fear of current or ex partner: Not on file Emotionally abused: Not on file Physically abused: Not on file Forced sexual activity: Not on file Other Topics Concern Back Care Not Asked Bike Helmet Not Asked Blood Transfusions Not Asked Caffeine Concern Not Asked Exercise No Hobby Hazards Not Asked International Travel Not Asked Service Not Asked Occupational Exposure Not Asked Seat Belt Not Asked Self-Exams Not Asked Sleep Concern Not Asked Special Diet Not Asked Stress Concern No Weight Concern Yes Social History Narrative [place] in [place] with her Review of Systems - Negative except as noted in HPI. Physical Exam: Vitals: 03/13/19 1044 BP: 110/52 BP Location: Left arm Patient Position: Sitting Pulse: 64 Weight: 242 lb (109.8 kg) Height: 5' 8" (1.727 m) Body mass index is 36.8 kg/m. General: Obese, alert 78-y.o. female sitting in WC in NAD HEENT: anicteric, MMM, no E/E OP, conj pink Neck: JVP not visible above clavicles while upright; no carotid bruits or LAD CV: Irreg irreg, normal s1/s2, no appreciable murmurs (previously had an LESLEY at USB that I don't appreciate today). Pulm: CTA bilaterally without wheezes, rhonchi, or rales. No increased work of breathing. Abd: soft, obese, NT, ND, +BS. No appreciable pulsatile masses or bruits. Ext: Trace bilateral lower extremity edema with + lymphedema, no cyanosis, no cords, redness, or warmth, 2+ distal pulses Neuro: Full exam not performed. Some mild memory deficits are evident. Skin: no visible lesions Labs: Lab Results Component Value Date NA 143 07/06/2018 K 3.8 07/06/2018 CL 103 07/06/2018 CO2 29 07/06/2018 GLUCOSE 135 (H) 07/06/2018 BUN 16 07/06/2018 CREATININE 0.6 (L) 07/06/2018 CALCIUM 9.6 07/06/2018 TP 7.5 07/06/2018 ALBUMIN 4.1 07/06/2018 AST 31 07/06/2018 ALT 21 07/06/2018 ALK 99 07/06/2018 TBILI 0.6 07/06/2018 EGFR >60 07/06/2018 No results found for: BNP Lab Results Component Value Date CHOL 194 01/01/2017 TRIG 245 (H) 01/01/2017 HDL 46 01/01/2017 LDL 99 01/01/2017 LDLHDLRATIO 2.2 01/01/2017 CHOLHDLRATIO 4.2 01/01/2017 Cardiac Studies: TTE 02/03/2019: FINAL IMPRESSION: Left ventricular cavity size is normal. Left ventricular wall thickness is mildly increased. No evidence of LVOT obstruction. Global systolic function is low normal with estimated LV EF 55-60%. There is moderate mitral annular calcification. There is mild to moderate mitral regurgitation. There is aortic sclerosis. There is no aortic regurgitation. The left atrium is severely dilated There is mild tricuspid regurgitation. Estimated pulmonary arterial systolic pressure is 30 mmHg The right atrium is mildly to moderately dilated. The right ventricle is moderately dilated in size with low-normal contractility. There is no pericardial effusion. TTE at [facility] 12/08/17: -Mild concentric LVH with LVEF 55-60%. -Moderate RV enlargement with low normal function -Mild to moderate MR -Mild TR Holter Monitor 08/13/17: FINDINGS: 1. Heart rate varies from 50 to 121, average of 75. 2. The underlying rhythm is atrial fibrillation with variable response. 3. The average heart rate is 75 and maximum is 121 suggesting reasonably well controlled rate. 4. Of note, 52% of the complexes are associated with noise and therefore the information is limited. CONCLUSION: Holter monitor significant for atrial fibrillation 100% of the time with right bundle-branch conduction delay, but reasonable ventricular rate control. Assessment & Plan: Torie Centeno is a 78-y.o. female with HTN, obesity, RCC, prior CVA August 31, dementia, diastolic CHF, and atrial fibrillation. ICD-9-CM ICD-10-CM 1. Persistent atrial fibrillation 427.31 I48.19 2. Essential hypertension 401.9 I10 3. Chronic diastolic CHF (congestive heart failure) (HCC) 428.32 I50.32 428.0 4. 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 Longstanding Persistent Atrial Fibrillation: The etiology of atrial fibrillation in this patient is most likely related to obesity, age, HTN, and possibly undiagnosed GERMÁN. The heart-rate is currently well controlled on the current medical regimen. This patient's [id number] score is 6. I recommend the following treatment strategy and medical regimen for this patient: Stroke prevention: Based on the patient's [id number] risk profile, I recommend continuing Eliquis. Even though she's had some falls, I explained to her and her family that the frequency of her falls is currently not high enough to warrant coming off OAC therapy. Will continue to assess risk:benefit at each visit and I encouraged the pt and her family to continue working to prevent falls. Rate control: Off BBs at this point d/t to significant bradycardia. HR well controlled today, which implies a degree of AV node dysfunction. Will hold off on repeating a Holter for now, but I will have a low threshold to do in the future if she develops any lightheadedness/dizziness. Rhythm control: N/A; pt completely asymptomatic from her Afib. Further workup/management issues: This patient has some risk factors for obstructive sleep apnea, which can contribute to atrial fibrillation onset and burden. I had previously referred her to Dr. Paz for further evaluation of possible GERMÁN but she never followed through with that. 2. HTN and Chronic Diastolic CHF: Intravascularly fairly euvolemic today, and her BP has been good on the current med regimen. Cont current doses of amlodipine, losartan/HCTZ. I again counseled her on the importance of weight loss and sodium restriction. Thank you for allowing me to participate in the care of Torie Centeno. We will plan on f/u in our office in 6 months with Karen or Breonna and 1 year with me. If you have any questions or concerns please feel free to call our office at . Ghulam Oscar MD, 03/13/2019, 10:51 This note was created using my previous note as a template; changes were made where appropriate, andall information in the current note is up to date to the best of my knowledge.Electronically signed by Ghulam Oscar MD at 2019 11:15 AM ESTdocumented in this encounter Plan of Treatment Date Type Specialty Care Team Description 09/11/2019 Office Visit Cardiology Breonna Honeycutt PA [address] [place] [address] [phone] 03/13/2020 Office Visit Cardiology Ghulam Oscar MD [address] [place] [address] Health Maintenance Due Date Last Done Comments MEDICARE ANNUAL WELLNESS 1940 VISIT DTaP/Tdap/Td Vaccines (1 - 1952 Tdap) HIV SCREENING 1956 FALL RISK ASSESSMENT 2006 OSTEOPOROSIS SCREENING 2006 ZOSTER IMMUNIZATION SERIES 12/16/2012 10/21/2012 (2 of 3) DEPRESSION SCREENING 07/22/2019 07/21/2018 PNEUMOCOCCAL 65+YRS Completed 10/17/2014, 12/30/2007 INFLUENZA VACCINE Completed 12/09/2018, 11/24/2017, 12/03/2016, Additional history exists HEPATITIS A IMMUNIZATION Aged Out No longer eligible SERIES based on patient's age to complete this topic HPV IMMUNIZATION SERIES Aged Out No longer eligible based on patient's age to complete this topic MENINGOCOCCAL VACCINE IMM Aged Out No longer eligible based on patient's age to complete this topic documented as of this encounter Goals Goal Patient Goal Associated Recent Patient-Stated? Author Type Problems Progress Blood Pressure Blood Pressure 110/52 No Michael, < 150/90 (03/13/2019 Almas Ron, 10:44 AM EST) Note: This is an individualized treatment (blood pressure) goal for Torie Centeno: Displayed above (on the left) is your goal for blood pressure control. Your most recent blood pressure is also shown above, on the right. You should try to achieve blood pressures that are lower than your goal listed above (on the left). Weight increase vs. 18 mo CHF 42 (03/13/2019 10:44 AM EST) Almas Barnes MD min (lbs) < 5 Note: This is an individualized treatment (congestive heart failure, CHF) goal for Torie Engelt: Displayed above (on the right) is how many pounds you are in excess of your lowest weight over the past 18 months. Note that lower numbers are better. Excessive weight gain often indicates fluid reten tion and worsening heart failure. You should contact your doctor immediately if the above number is too high (above your goal, the number on the left). Weight loss vs. 18 mo Lifestyle 0 (03/13/2019 10:44 AM Almas Barnes MD max (lbs) >= 10 EST) Note: This is an individualized lifestyle goal for Torie Centeno: Your body mass index (BMI) is more than 30. You should lose weight. A reasonable starting goal is to lose 10 pounds. Displayed above is how many pounds you have lost thus far towards your 10 pound weight loss goal. Consume a qz-kbrrz-cyzt diet Lifestyle Almas Barnes MD Note: This is an individualized lifestyle goal for Torie Centeno: Please do not add additional salt to your food. Additional salt may lead to fluid retention and worsen your congestive heart failure. Take all prescribed medications as Self-management Almas Barnes MD directed Note: This is an individualized self-management goal for Torie Engelt: Please take all prescribed medications as directed. 1. Do not skip doses. If you cannot afford your medications, talk with your doctor. 2. Use a pill reminder system such as a pill box if needed. Your pharmacist can help you with this. 3. Contact your Pharmacy 5 days before your medication runs out. If you cannot take your medications for any reasons, talk with your doctor. 4. Please bring all of your medication bottles and inhalers (or a list of all your medications/inhalers) with you to every visit. Potential barriers to meeting all of your care plan goals will continue to be addressed on an ongoing basis. Check your weight daily Self-management Almas Barnes MD Note: This is an individualized self-management goal for Torie Centeno: Please check your weight daily. Refer to the accompanying CHF treatment goal and call your doctor immediately for further instructions on how to respond to unexpected weight gain. 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
--- OUTSIDE RECORDS SUMMARY | 2019-03-21 16:46 | XMS REPORT | Continuity of Care Document ---
:1940 External Reference #:[id number] Author Name Sam Stovall M.D. (transmitted by agent of provider Helen Douglas ) Address [address], [address] [place] [id number] Care Team Providers Name Role Phone Almas Rodriguez MD - Internal Care Team Information Manager Plan [phone] Medicine Problems Active Problems Provider Date History of cerebrovascular accident Denise Juarez MD Onset: 10/21/2016 without residual deficits Atrial fibrillation Denise Juarez MD Onset: 10/21/2016 Hypertensive urgency Christopher Sin II, M.D. Onset: 12/07/2017 Late effects of cerebrovascular disease Christopher Sin II, M.D. Onset: Unspecified dementia without behavioral Jocelynn Persaud NP Onset: 12/09/2017 disturbance Edema Jocelynn Persaud NP Onset: 12/08/2017 Lymphedema Jocelynn Persaud NP Onset: 12/08/2017 Social History Type Date Description Comments Sex Unknown ETOH Use Denies alcohol use Tobacco Use Start: Unknown End: Unknown Patient is a former smoker Smoking Status Reviewed: 01/23/19 Patient is a former smoker Allergies, Adverse Reactions, Alerts Active Allergies Reaction Severity Comments Date Demerol passes out Moderate 12/30/2018 Inactive Allergies NKDA 10/21/2016 Medications Active Medications SIG Qnty Indications Ordering Provider Date Eliquis 1 bid Unknown 5mg Tablets Acetaminophen 2 every 4 hours Unknown 325mg Tablets as needed for pain Atorvastatin Calcium 1 by mouth every Unknown 40mg day Tablets Amlodipine Besylate 1 by mouth every Unknown 5mg day Tablets Losartan 1 by mouth every Unknown Potassium/Hydrochlorothi day azide 100-25mg Tablets Spironolactone 1 tab once a day Almas Rodriguez, 25mg Tablets Esctae Oxalate Take 1 tab daily Unknown 5mg Tablets Immunizations Description No Information Available Vital Signs Date Vital Result Comment 01/23/2019 2:14pm Height 66 inches 5'6" Weight 228.00 lb pt in wheelchair Heart Rate 84 /min BP Systolic 118 mmHg BP Diastolic 74 mmHg BMI (Body Mass Index) 36.8 kg/m2 10/21/2016 10:57am Height 66 inches 5'6" Weight 240.12 lb Heart Rate 88 /min BP Systolic Sitting 128 mmHg BP Diastolic Sitting 88 mmHg BMI (Body Mass Index) 38.8 kg/m2 Results Description No Information Available Procedures Description No Information Available Medical Devices Description No Information Available Encounters Description No Information Available Assessments Date Code Description Provider 01/23/2019 I63.9 Cerebral infarction, unspecified Sam Stovall M.D. 01/23/2019 I48.91 Unspecified atrial fibrillation Sam Stovall M.D. 01/23/2019 I69.311 Memory deficit following cerebral Sam Stovall M.D. infarction 01/23/2019 R29.6 Repeated falls Sam Stovall M.D. 01/23/2019 R53.1 Weakness Sam Stovall M.D. Plan of Treatment Future Appointment(s):02/24/2019 10:45 am - Sam Stovall M.D. at [facility]/23/2019 - Sam Stovall M.D.I63.9 Cerebral infarction, unspecifiedNew Xrays:MRI Brain W/O, Ordered: 01/23/19MRI Cervical Spine Wo, Ordered: 01/23/19MRI Thoracic Spine W/O, Ordered: 01/23/19Follow up: after tests, 3-6 weeks,I48.91 Unspecified atrial ddgstfzwimuaD52.311 Memory deficit following cerebral isijfnbesxA92.6 Repeated jenqgA69.1 Weakness Functional Status Description No Information Available Mental Status Description No Information Available Referrals Description No Information Available
--- NOTE | 2019-03-21 20:07 | ED ---
Lower Extremity - HPI Summary HPI Summary: Patient complains of right calf pain and swelling 2 days, left leg redness and warmth starting today. Patient has history of DVT, CVA. Patient currently on Eliquis. Denies trauma, cough, sore throat, fever, CP, SOB, N/V/D, abdominal pain, change in urine, change in BM. Medical history is A. fib, CVA, bilateral lower extremity neuropathy. 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 Hx Last Menstrual Period: N/A Mechanism Of Injury: Unknown Onset of Pain: Days Onset/Duration: Days Severity Initially: Mild Severity Currently: Mild Pain Intensity: 3 Pain Scale Used: 0-10 Numeric Timing: Constant Location: Is Discrete @ Character Of Pain: Aching Associated Signs And Symptoms: Positive: Swelling, Redness Aggravating Factor(s): Standing, Ambulation Alleviating Factor(s): Rest Able to Bear Weight: Yes - Allergies/Home Medications Allergies/Adverse Reactions: Allergies Allergy/AdvReac Type Severity Reaction Status Date / Time No Known Allergies Allergy Verified 02/14/19 14:03 PMH/Surg Hx/FS Hx/Imm Hx Endocrine/Hematology History: Reports: Hx Anticoagulant Therapy Denies: Hx Diabetes Cardiovascular History: Reports: Hx Hypertension Denies: Hx Pacemaker/ICD History: Reports: Other Problems/Disorders - hx of right kidney cancer Denies: Hx Dialysis, Hx Renal Disease Musculoskeletal History: Reports: Hx Arthritis, Other Musculoskeletal History Sensory History: Reports: Hx Contacts or Glasses Denies: Hx Hearing Aid Opthamlomology History: Reports: Hx Contacts or Glasses EENT History: Denies: Hx Deafness Neurological History: Reports: Hx CVA - 2016 , Hx Dementia Psychiatric History: Denies: Hx Panic Disorder - Cancer History Cancer Type, Location and Year: RIGHT KIDNEY - Surgical History Surgery Procedure, Year, and Place: removal of a piece of the right kidney Infectious Disease History: No Infectious Disease History: Denies: Traveled Outside the [place] in Last 30 Days - Family History Known Family History: Positive: Cardiac Disease - [place] BUT OTHERWISE NO HISTORY, Hypertension, Other - CERVICAL CA, ETOH ABUSE Negative: Diabetes - Social History Alcohol Use: None Hx Substance Use: No Substance Use Type: Reports: None Hx Tobacco Use: No Smoking Status (MU): Former Smoker Review of Systems Constitutional: Negative Eyes: Negative ENT: Negative Cardiovascular: Negative Respiratory: Negative Gastrointestinal: Negative Musculoskeletal: Other Skin: Other Neurological: Negative Psychological: Normal All Other Systems Reviewed And Are Negative: Yes Physical Exam - Summary Physical Exam Summary: Mild nonpitting edema right calf and ankle. Calf soft, mildly tender along the length of calf muscle. No erythema. PMS intact distally. Warmth and erythema along left lower extremity over anterior and medial paredes proximal to left ankle. No evidence of wound or abscess. Triage Information Reviewed: Yes Vital Signs On Initial Exam: Initial Vitals Temp Pulse Resp BP Pulse Ox 96.8 F 69 18 115/75 95 03/21/19 16:21 03/21/19 16:21 03/21/19 16:21 03/21/19 16:21 03/21/19 16:21 Vital Signs Reviewed: Yes Appearance: Positive: Well-Appearing Skin: Positive: Warm Head/Face: Positive: Normal Head/Face Inspection Eyes: Positive: Normal Neck: Positive: Supple Respiratory/Lung Sounds: Positive: Clear to Auscultation Cardiovascular: Positive: IRR Abdomen Description: Positive: Nontender Musculoskeletal: Positive: Normal Neurological: Positive: Normal Psychiatric: Positive: Normal AVPU Assessment: Alert - Joselyn Coma Scale Best Eye Response: 4 - Spontaneous Best Motor Response: 6 - Obeys Commands Best Verbal Response: 5 - Oriented Coma Scale Total: 15 Procedures - Sedation Patient Received Moderate/Deep Sedation with Procedure: No Diagnostics - Vital Signs Vital Signs Temp Pulse Resp BP Pulse Ox 03/21/19 18:32 98.3 F 64 18 119/64 95 03/21/19 16:21 96.8 F 69 18 115/75 95 - Laboratory Lab Statement: Any lab studies that have been ordered have been reviewed, and results considered in the medical decision making process. Lower Extremity Course/Dx - Course Course Of Treatment: Patient complains of right calf pain and swelling 2 days, left leg redness and warmth starting today. Patient has history of DVT, CVA. Patient currently on Eliquis. Denies trauma, cough, sore throat, fever, CP, SOB , N/V/D, abdominal pain, change in urine, change in BM. Medical history is A. fib, CVA, bilateral lower extremity neuropathy. Vital signs within normal limits. Ultrasound negative for DVT. - Diagnoses Provider Diagnoses: Strain of right calf muscle, Cellulitis of left lower leg Discharge ED - Sign-Out/Discharge Documenting (check all that apply): Patient Departure - Discharge Plan Condition: Stable Disposition: HOME Prescriptions: Cephalexin CAP* [Keflex CAP*] 500 mg PO QID 5 Days #20 cap Patient Education Materials: Muscle Strain (ED), Cellulitis (ED) Referrals: Almas Rodriguez MD [Primary Care Provider] - Additional Instructions: Rest muscles of right calf. Tylenol may help. Heating pad may help. Take antibiotics as directed for possible cellulitis of left lower leg. Follow-up with primary care. Return to the ED for any new or worsening symptoms. - Billing Disposition and Condition Condition: STABLE Disposition: Home - Attestation Statements Provider Attestation: I was available for consult. This patient was seen by the CHRISTIE. The patient was not presented to, seen by, or examined by me. Tad Quevedo MD
[2019-03-21] MEDS ORDERED: Cephalexin CAP* 500 MG PO ONE (20:18)
[2019-03-21 20:53] VITALS: BP 121/67
== END 2019-03-21 20:51 | disposition home or self-care (01) ==
LOC: ED 16:05
DX: S86.911A Strain of unspecified muscle(s) and tendon(s) at lower leg level, right leg, initial encounter (principal); X58.XXXA Exposure to other specified factors, initial encounter; Y92.9 Unspecified place or not applicable; L03.116 Cellulitis of left lower limb; I10 Essential (primary) hypertension; F03.90 Unspecified dementia, unspecified severity, without behavioral disturbance, psychotic disturbance, mood disturbance, and anxiety; Z79.01 Long term (current) use of anticoagulants; Z86.73 Personal history of transient ischemic attack (TIA), and cerebral infarction without residual deficits; Z85.528 Personal history of other malignant neoplasm of kidney; Z87.891 Personal history of nicotine dependence
CPT/HCPCS: 99282; A9270-GY

== ENCOUNTER 2019-10-30 22:13 | Inpatient (IN) ==
[2019-10-30 22:52] LABS: ABS Basophils 0.1 10^3/ul (0-0.2); ABS Lymphocytes 1.3 10^3/ul (1.0-4.8); ABS Monocytes 0.6 10^3/ul (0-0.8); Eosinophil % 0.5 %; Hematocrit 34 % (35-47); Hemoglobin 11.5 g/dL (12.0-16.0); Lymphocyte % 14.6 %; Mean Corpuscular HGB Conc 34 g/dL (31-36); Mean Corpuscular Hemoglobin 30 pg (27-31); Mean Corpuscular Volume 88 fL (80-97); Mean Platelet Volume 8.5 fL (7.4-10.4); Platelet Count 299 10^3/uL (150-450); Red Blood Count 3.84 10^6 /uL (3.70-4.87); Red Cell Distribution Width 14 % (10-15)
[2019-10-30 23:01] LABS: Activated Partial Thrombo Time 32.8 seconds (26.0-38.0); INR 1.75 (0.82-1.09)
[2019-10-30 23:02] LABS: Albumin 3.7 g/dL (3.2-5.2); Albumin/Globulin Ratio 1.4 (1-3); BUN/Creatinine Ratio 57.1 (8-20); Calcium 9.9 mg/dL (8.6-10.3); EGFR African American 87.7 (>60); EGFR Non-African American 72.5 (>60); Globulin 2.6 g/dL (2-4); Potassium 3.7 mmol/L (3.5-5.0); Total Bilirubin 0.4 mg/dL (0.2-1.0); Total Protein 6.3 g/dL (6.4-8.9)
[2019-10-30] MEDS ORDERED: Pantoprazole VIAL 40 MG VIAL IV ONE (23:54)
[2019-10-30] MEDS ORDERED: Ondansetron 4 mg VIAL 2 MG/ML 2 ml VIAL IV PRN (23:54)
[2019-10-31] MEDS ORDERED: Oxymetazoline 0.05% NASAL SPR 15 ML BTL RIGHT NARE ONE (00:30)
[2019-10-31] MEDS: Pantoprazole 80 mg in NS BAG 80 MG/250 ML BAG IV SCH ×3 (00:59→22:47)
[2019-10-31 04:29] LABS: ABS Eosinophils 0.1 10^3/ul (0-0.6); ABS Lymphocytes 1.8 10^3/ul (1.0-4.8); ABS Monocytes 0.6 10^3/ul (0-0.8); ABS Neutrophils 4.9 10^3/ul (1.5-7.7); Eosinophil % 1.1 %; Hematocrit 31 % (35-47); Hemoglobin 10.2 g/dL (12.0-16.0); Lymphocyte % 24.9 %; Mean Corpuscular HGB Conc 34 g/dL (31-36); Mean Corpuscular Hemoglobin 30 pg (27-31); Mean Corpuscular Volume 89 fL (80-97); Platelet Count 264 10^3/uL (150-450); Red Blood Count 3.44 10^6 /uL (3.70-4.87); Red Cell Distribution Width 14 % (10-15); White Blood Count 7.4 10^3/uL (3.5-10.8)
[2019-10-31 04:41] LABS: BUN/Creatinine Ratio 63.2 (8-20); Calcium 9.2 mg/dL (8.6-10.3); EGFR African American 101.3 (>60); EGFR Non-African American 83.7 (>60); INR 1.66 (0.82-1.09); Potassium 3.3 mmol/L (3.5-5.0)
[2019-10-31] MEDS: KCL 10 MEQ/50 ML IVPREMIX 10 MEQ/50 ML BAG IV SCH ×4 (06:08→10:40)
[2019-10-31] MEDS ORDERED: Potassium Chloride IV 20 MEQ in Lactated Ringers 1000 ml BAG 1,000 ML IVPB SCH (10:00)
[2019-11-01 08:28] LABS: Hematocrit 30 % (35-47); Hemoglobin 9.9 g/dL (12.0-16.0); Mean Corpuscular HGB Conc 34 g/dL (31-36); Mean Corpuscular Hemoglobin 30 pg (27-31); Mean Corpuscular Volume 89 fL (80-97); Mean Platelet Volume 8.3 fL (7.4-10.4); Platelet Count 238 10^3/uL (150-450); Red Cell Distribution Width 14 % (10-15); White Blood Count 6.7 10^3/uL (3.5-10.8)
[2019-11-01] MEDS: Pantoprazole 80 mg in NS BAG 80 MG/250 ML BAG IV SCH (08:34)
[2019-11-01] MEDS: KCL 20 MEQ/100 ML IVPREMIX 20 MEQ/100 ML BAG IV SCH ×2 (08:34→16:14)
[2019-11-01 08:45] LABS: BUN/Creatinine Ratio 35.9 (8-20); Calcium 9.2 mg/dL (8.6-10.3); EGFR African American 108.6 (>60); EGFR Non-African American 89.7 (>60); Potassium 3.7 mmol/L (3.5-5.0)
[2019-11-01] MEDS ORDERED: fentaNYL 100 mcg/2 ml 50 MCG/ML VIAL ONE (10:05)
[2019-11-01] MEDS ORDERED: Propofol 10 MG/ML 20 ML BTL ONE (10:05)
[2019-11-01] MEDS ORDERED: fentaNYL 100 mcg/2 ml 50 MCG/ML VIAL IV PRN (11:35)
[2019-11-01] MEDS ORDERED: Naloxone 0.4 mg VIAL 0.4 mg/ml 1 ml VIAL IV PRN (11:35)
[2019-11-01 15:14] LABS: Hematocrit 27 % (35-47); Hemoglobin 9.2 g/dL (12.0-16.0); Mean Corpuscular HGB Conc 34 g/dL (31-36); Mean Corpuscular Hemoglobin 31 pg (27-31); Mean Corpuscular Volume 89 fL (80-97); Mean Platelet Volume 8.2 fL (7.4-10.4); Platelet Count 261 10^3/uL (150-450); Red Blood Count 3.02 10^6 /uL (3.70-4.87); Red Cell Distribution Width 14 % (10-15); White Blood Count 5.9 10^3/uL (3.5-10.8)
[2019-11-01] MEDS: Pantoprazole VIAL 40 MG VIAL IV SCH ×2 (19:47→20:09)
[2019-11-01 21:50] LABS: Hematocrit 27 % (35-47); Hemoglobin 9.1 g/dL (12.0-16.0); Mean Corpuscular HGB Conc 34 g/dL (31-36); Mean Corpuscular Hemoglobin 30 pg (27-31); Mean Corpuscular Volume 89 fL (80-97); Mean Platelet Volume 7.8 fL (7.4-10.4); Platelet Count 265 10^3/uL (150-450); Red Blood Count 3.03 10^6 /uL (3.70-4.87); Red Cell Distribution Width 14 % (10-15); White Blood Count 6.1 10^3/uL (3.5-10.8)
[2019-11-02 05:37] LABS: Hematocrit 28 % (35-47); Hemoglobin 9.7 g/dL (12.0-16.0); Mean Corpuscular HGB Conc 35 g/dL (31-36); Mean Corpuscular Hemoglobin 31 pg (27-31); Mean Corpuscular Volume 89 fL (80-97); Mean Platelet Volume 8.1 fL (7.4-10.4); Platelet Count 271 10^3/uL (150-450); Red Blood Count 3.14 10^6 /uL (3.70-4.87); Red Cell Distribution Width 14 % (10-15); White Blood Count 9.1 10^3/uL (3.5-10.8)
[2019-11-02] MEDS: Pantoprazole VIAL 40 MG VIAL IV SCH ×2 (09:45→20:55)
[2019-11-02 14:07] LABS: Hematocrit 27 % (35-47); Hemoglobin 9.6 g/dL (12.0-16.0); Mean Corpuscular HGB Conc 35 g/dL (31-36); Mean Corpuscular Hemoglobin 31 pg (27-31); Mean Corpuscular Volume 89 fL (80-97); Mean Platelet Volume 7.8 fL (7.4-10.4); Platelet Count 259 10^3/uL (150-450); Red Blood Count 3.07 10^6 /uL (3.70-4.87); Red Cell Distribution Width 14 % (10-15); White Blood Count 6.4 10^3/uL (3.5-10.8)
[2019-11-02 21:48] LABS: Hematocrit 28 % (35-47); Hemoglobin 9.4 g/dL (12.0-16.0); Mean Corpuscular HGB Conc 34 g/dL (31-36); Mean Corpuscular Hemoglobin 30 pg (27-31); Mean Corpuscular Volume 89 fL (80-97); Mean Platelet Volume 7.6 fL (7.4-10.4); Platelet Count 280 10^3/uL (150-450); Red Blood Count 3.14 10^6 /uL (3.70-4.87); Red Cell Distribution Width 14 % (10-15); White Blood Count 6.2 10^3/uL (3.5-10.8)
[2019-11-03 06:12] LABS: Hematocrit 28 % (35-47); Hemoglobin 9.3 g/dL (12.0-16.0); Mean Corpuscular HGB Conc 34 g/dL (31-36); Mean Corpuscular Hemoglobin 30 pg (27-31); Mean Corpuscular Volume 89 fL (80-97); Mean Platelet Volume 7.9 fL (7.4-10.4); Platelet Count 269 10^3/uL (150-450); Red Blood Count 3.09 10^6 /uL (3.70-4.87); Red Cell Distribution Width 14 % (10-15)
[2019-11-03 13:58] LABS: Hematocrit 31 % (35-47); Mean Corpuscular HGB Conc 33 g/dL (31-36); Mean Corpuscular Hemoglobin 30 pg (27-31); Mean Corpuscular Volume 90 fL (80-97); Mean Platelet Volume 7.9 fL (7.4-10.4); Platelet Count 319 10^3/uL (150-450); Red Blood Count 3.38 10^6 /uL (3.70-4.87); Red Cell Distribution Width 14 % (10-15); White Blood Count 6.6 10^3/uL (3.5-10.8)
[2019-11-04 08:46] LABS: Hematocrit 27 % (35-47); Hemoglobin 9.2 g/dL (12.0-16.0); Mean Corpuscular HGB Conc 35 g/dL (31-36); Mean Corpuscular Hemoglobin 31 pg (27-31); Mean Corpuscular Volume 89 fL (80-97); Mean Platelet Volume 7.8 fL (7.4-10.4); Platelet Count 275 10^3/uL (150-450); Red Cell Distribution Width 15 % (10-15); White Blood Count 6.1 10^3/uL (3.5-10.8)
[2019-11-04] MEDS ORDERED: Influenza VAC *QUAD* 2020-21* 0.5 ML SYRINGE IM ONE (09:00)
[2019-11-04 12:29] VITALS: BP 132/62
== END 2019-11-04 15:30 | disposition home health service (06) | DRG 378 ==
LOC: ED 22:13 → MED 10-31 02:08
PROVIDERS: ADMIT Pediatrics; ATTEND Internal Medicine
PROC: O.GIEGD (2019-11-01 10:25)